=== PATIENT | male | born 1950 | race Caucasian/White ===

== ENCOUNTER 2016-11-22 16:11 | Observation (INO) | payer MEDICARE, BC ==
[2016-11-22] MEDS ORDERED: SODIUM CHLORIDE 0.9% 500 ML IV STA (17:00)
[2016-11-22] MEDS: EPINEPHrine 1 MG/ML 1 ML AMP IRRIGATION STA ×2 (17:08→17:21)
[2016-11-22] MEDS: EPINEPHrine 10 ML SYRINGE (0.1 MG/ML) MISCELLANE STA ×3 (17:21→17:25)
[2016-11-22 17:24] LABS: Basophils # (A) 0.1 k/uL (0-0.2); Basophils % (A) 0 %; CH 30.2; CHCM 34.7; Eosinophils # (A) 0.2 k/uL (0-0.7); Eosinophils % (A) 1 %; HCT 43.6 % (39.0-53.0); HGB 14.9 gm/dL (13.0-17.5); Luc # (Auto) 0.25; Luc % (Auto) 2; Lymphocytes # (A) 2.5 k/uL (1.0-4.8); Lymphocytes % (A) 16 %; MCH 29.8 pg (25.0-35.0); MCHC 34.1 g/dL (31.0-37.0); MCV 87.5 fL (80.0-100.0); Mean Platelet Volume 8.5; Monocytes # (A) 0.9 k/uL (0-1.0); Monocytes % (A) 6 %; Neutrophils # (A) 11.5 k/uL (1.3-7.7); Neutrophils % (A) 75 %; RBC 4.98 m/uL (4.30-5.90); RDW 14.1 % (11.5-15.5); WBC 15.4 k/uL (3.8-10.6); WBC (Perox) 15.52
[2016-11-22 17:29] LABS: INR 0.9 (<1.1); Prothrombin Time 9.7 sec (9.0-12.0)
[2016-11-22 17:40] LABS: ALT 35 U/L (21-72); AST 25 U/L (17-59); Alkaline Phosphatase 49 U/L (38-126); Anion Gap 12 mmol/L; Blood Urea Nitrogen 36 mg/dL (9-20); Calcium 9.5 mg/dL (8.4-10.2); Carbon Dioxide 21 mmol/L (22-30); Chloride 109 mmol/L (98-107); Glucose 150 mg/dL (74-99); Non-African American GFR(MDRD) 55 (>60 ml/min/1.73 sqM); Sodium 142 mmol/L (137-145); Total Bilirubin 0.4 mg/dL (0.2-1.3); Total Protein 6.5 g/dL (6.3-8.2)
[2016-11-22] MEDS ORDERED: HYDROmorphone 1 MG/ML 1 ML SYRINGE IVP STA (18:46)
--- NOTE | 2016-11-22 19:26 | ED ---
General Adult HPI - General Chief complaint: Recheck/Abnormal Lab/Rx Stated complaint: post op bleeding, under tongue Time Seen by Provider: 11/22/16 16:57 Source: patient, RN notes reviewed Mode of arrival: ambulatory Limitations: no limitations - History of Present Illness Initial comments: Chief complaint and history of present illness a 66-year-old male comes emergency room because he was bleeding from his tongue. The patient reports that he was in a movie felt his mouth for with some fluid he spent on the floor when outside spit again and noticed that was blood with clots. Arrived emergency room and continued to bleed heavily. While in emergency room the Spitting blood with large clots. The patient's recent history finds he has had tongue cancer removed 3 weeks ago at a [facility]. Surgical site was sutured but appeared to open today. Patient reports she was biting it with his tongue for the last 3 weeks. - Related Data Allergies Allergy/AdvReac Type Severity Reaction Status Date / Time No Known Allergies Allergy Verified 11/22/16 16:49 Review of Systems ROS Statement: Those systems with pertinent positive or pertinent negative responses have been documented in the HPI. Review of systems. No headache or visual acuity changes place patient's bleeding heavily from his tongue. No chest pain shortness breath GI/ problems. All systems otherwise reviewed. Past medical problems patient has hypertension takes aspirin 81 mg daily. Heavy smoker tongue cancer with surgery 3 weeks ago. Patient reports he was not told he has to have radiation or chemotherapy. ROS Other: All systems not noted in ROS Statement are negative. Past Medical History Past Medical History: Cancer, Diabetes Mellitus, Hyperlipidemia, Hypertension Additional Past Medical History / Comment(s): under tongue History of Any Multi-Drug Resistant Organisms: None Reported Past Surgical History: Tonsillectomy Additional Past Surgical History / Comment(s): cancer removal under tongue Past Psychological History: No Psychological Hx Reported Smoking Status: Current every day smoker Past Alcohol Use History: None Reported Past Drug Use History: None Reported General Exam - General Exam Comments Initial Comments: General: The patient is awake and alert, in moderate distress because of heavy bleeding from his tongue. Vital signs showed temperature 97.5 pulse 68 respiratory rate 18 pulse ox 90% room air blood pressure 154/78 Eye: Pupils are equal, , extra-ocular movements are intact; there is normal conjunctiva bilaterally. Ears, nose, mouth and throat: Patient had a large amount of blood coming from recent surgical site left lateral aspect of his tongue. Neck: The neck is supple, Cardiovascular: No chest pain Respiratory: Lungs clear to auscultation. No complaint of shortness of breath. Gastrointestinal: No complaint of abdominal pain. Back: No back pain Musculoskeletal: Full range of motion upper and lower extremities Neurological: Neuro intact Skin: Skin is warm and dry and no rashes or lesions are noted. Limitations: no limitations Course Vital Signs 11/22/16 11/22/16 11/22/16 16:44 17:11 17:17 Temperature 97.5 F L Pulse Rate 87 67 62 Respiratory 20 18 18 Rate Blood Pressure 140/62 179/77 163/74 O2 Sat by Pulse 97 99 Oximetry 11/22/16 11/22/16 11/22/16 17:22 17:37 17:52 Temperature Pulse Rate 63 64 75 Respiratory 18 18 Rate Blood Pressure 158/65 153/72 183/77 O2 Sat by Pulse 98 97 Oximetry 11/22/16 11/22/16 11/22/16 18:21 18:47 19:12 Temperature Pulse Rate 68 68 67 Respiratory 18 18 18 Rate Blood Pressure 158/66 154/78 161/77 O2 Sat by Pulse 98 98 97 Oximetry Medical Decision Making - Medical Decision Making Medical decision-making. The patient presented to the emergency room bleeding heavily from his tongue. He was rapidly brought back to room where we could assess the problem. While being assessed the patient became more diaphoretic and had a syncopal episode lasting approximately 45 seconds. During which time is able to find a bleeding site on the tongue. Packed it with epinephrine soaked gauze which helped to stop the bleeding. Patient's vital signs remained stable the entire time. ENT, Dr. Chris was called and responded to emergency room. While in emergency room Dr. Chris stop the bleeding with electrocautery. Sutured tongue with 3-0 chromic. The patient be admitted to his service for the evening. - Lab Data Result diagrams: 11/22/16 17:05 11/22/16 17:05 Lab Results 11/22/16 11/22/16 11/22/16 Range/Units 17:05 17:05 17:05 WBC 15.4 H (3.8-10.6) k/uL RBC 4.98 (4.30-5.90) m/uL Hgb 14.9 (13.0-17.5) gm/dL Hct 43.6 (39.0-53.0) % MCV 87.5 (80.0-100.0) fL MCH 29.8 (25.0-35.0) pg MCHC 34.1 (31.0-37.0) g/dL RDW 14.1 (11.5-15.5) % Plt Count 329 (150-450) k/uL Neutrophils % 75 % Lymphocytes % 16 % Monocytes % 6 % Eosinophils % 1 % Basophils % 0 % Neutrophils # 11.5 H (1.3-7.7) k/uL Lymphocytes # 2.5 (1.0-4.8) k/uL Monocytes # 0.9 (0-1.0) k/uL Eosinophils # 0.2 (0-0.7) k/uL Basophils # 0.1 (0-0.2) k/uL PT 9.7 (9.0-12.0) sec INR 0.9 (<1.1) Sodium 142 (137-145) mmol/L Potassium 5.0 (3.5-5.1) mmol/L Chloride 109 H (98-107) mmol/L Carbon Dioxide 21 L (22-30) mmol/L Anion Gap 12 mmol/L BUN 36 H (9-20) mg/dL Creatinine 1.30 H (0.66-1.25) mg/dL Est GFR (MDRD) Af Amer >60 (>60 ml/min/1.73 sqM) Est GFR (MDRD) Non-Af 55 (>60 ml/min/1.73 sqM) Glucose 150 H (74-99) mg/dL Calcium 9.5 (8.4-10.2) mg/dL Total Bilirubin 0.4 (0.2-1.3) mg/dL AST 25 (17-59) U/L ALT 35 (21-72) U/L Alkaline Phosphatase 49 (38-126) U/L Total Protein 6.5 (6.3-8.2) g/dL Albumin 3.7 (3.5-5.0) g/dL Blood Type Blood Type Recheck Antibody Screen Spec Expiration Date 11/22/16 Range/Units 17:05 WBC (3.8-10.6) k/uL RBC (4.30-5.90) m/uL Hgb (13.0-17.5) gm/dL Hct (39.0-53.0) % MCV (80.0-100.0) fL MCH (25.0-35.0) pg MCHC (31.0-37.0) g/dL RDW (11.5-15.5) % Plt Count (150-450) k/uL Neutrophils % % Lymphocytes % % Monocytes % % Eosinophils % % Basophils % % Neutrophils # (1.3-7.7) k/uL Lymphocytes # (1.0-4.8) k/uL Monocytes # (0-1.0) k/uL Eosinophils # (0-0.7) k/uL Basophils # (0-0.2) k/uL PT (9.0-12.0) sec INR (<1.1) Sodium (137-145) mmol/L Potassium (3.5-5.1) mmol/L Chloride (98-107) mmol/L Carbon Dioxide (22-30) mmol/L Anion Gap mmol/L BUN (9-20) mg/dL Creatinine (0.66-1.25) mg/dL Est GFR (MDRD) Af Amer (>60 ml/min/1.73 sqM) Est GFR (MDRD) Non-Af (>60 ml/min/1.73 sqM) Glucose (74-99) mg/dL Calcium (8.4-10.2) mg/dL Total Bilirubin (0.2-1.3) mg/dL AST (17-59) U/L ALT (21-72) U/L Alkaline Phosphatase (38-126) U/L Total Protein (6.3-8.2) g/dL Albumin (3.5-5.0) g/dL Blood Type AB Positive Blood Type Recheck CABO Indicated Antibody Screen NEGATIVE Spec Expiration Date 11/25/20162304 Disposition Clinical Impression: Hemorrhage of tongue Disposition: ADMITTED IP TO THIS HOSP Condition: Stable
[2016-11-22] MEDS ORDERED: HYDROmorphone PCA 5 MG/25 ML SYRINGE IV PRN (20:21)
[2016-11-22] MEDS ORDERED: ceFAZolin 2 GM in SODIUM CHLORIDE 0.9% 100 ML IVPB STA (20:22)
[2016-11-22] MEDS ORDERED: TEMAZEPAM 30 MG CAP PO PRN ×2 (20:27→22:30)
[2016-11-22 20:43] VITALS: RESP 16
[2016-11-22] MEDS ORDERED: LACTATED RINGERS 1,000 ML IV SCH (21:00)
[2016-11-22] MEDS ORDERED: METOPROLOL SUCCINATE (ER) 50 MG TAB.ER.24H PO SCH (21:30)
[2016-11-22] MEDS ORDERED: LISINOPRIL 10 MG TAB PO SCH (22:00)
[2016-11-22] MEDS ORDERED: ATORVASTATIN 20 MG TAB PO SCH (22:00)
[2016-11-22] MEDS ORDERED: INSULIN DETEMIR 100 UNIT/ML 10 ML VIAL SQ SCH (22:00)
[2016-11-22] MEDS ORDERED: DEXAMETHASONE 4 MG TAB PO STA (23:28)
[2016-11-22 23:33] LABS: Glucose,Whole Blood 222 mg/dL (75-99)
[2016-11-22] MEDS ORDERED: DEXAMETHASONE SOD PHOSPHATE 10 MG/ML 1 ML VIAL IV STA (23:35)
[2016-11-22] MEDS: ACETAMINOPHEN IV (For NPO) 1,000 MG in EMPTY BAG 1 BAG IVPB SCH (23:50)
[2016-11-22] MEDS: ONDANSETRON 4 MG/2 ML VIAL IVP SCH (23:54)
[2016-11-23] MEDS: ACETAMINOPHEN IV (For NPO) 1,000 MG in EMPTY BAG 1 BAG IVPB SCH ×2 (00:09→06:17)
[2016-11-23] MEDS: ONDANSETRON 4 MG/2 ML VIAL IVP SCH ×2 (00:10→06:18)
[2016-11-23 02:10] VITALS: BMI 30.4
--- NOTE | 2016-11-23 06:15 | ED ---
DATE OF SERVICE: 11/22/2016 Date of emergency room visit is 11/22/2016. REASON FOR ER VISIT: Delayed postoperative wound (left lateral tongue) dehiscence with uncontrolled hemorrhaging. Chief complaint is as above. HISTORY OF PRESENT ILLNESS: This patient is a 66-year-old male who presented to [facility] Emergency Room complaining of severe bleeding from the mouth. 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 The patient's wound defect was closed in a simple fashion with sutures. The patient did well until earlier on the evening of 11/22/2016 while watching a movie at [employer], the patient states that he was eating popcorn and noticed that he was bleeding orally. As he exited the theater, the patient stated that he found himself spitting up large amounts of blood and subsequently was taken to [facility] Emergency Room. He was evaluated by Dr. James who attempted to pack the area and apply pressure in an effort to stop the bleeding. When he was unable to do so, he contacted me at home as the ENT physician vp production. Dr. James explained ( ) to me and advised me that he would like for me to come in and treat the patient. At the time that I arrived at the emergency room, one could see that the patient was bleeding from the oropharynx on the left side and at that time there was significant gauze packing in the oropharynx. The patient has a history of smoking 1+ packs of cigarettes per day for most of his life and has been advised to stop for obvious health reasons. He denies any excess use of alcohol. He stated that he intends to quit smoking immediately and never use tobacco products again. Past medical history reveals the patient has no known allergies to medications. He is on numerous medications including metoprolol, enalapril, hydrochlorothiazide, glimepiride, Levemir, 1 baby aspirin daily, Januvia, TriCor, and omeprazole. Review of systems reveals that the cardiovascular system is positive for hypertension. Respiratory is negative. Gastrointestinal is positive for GERD. Metabolic/endocrine is positive for hypercholesterolemia. Musculoskeletal is positive for osteoarthritis. Metabolic/endocrine is also positive for diabetes mellitus. The remainder of review of systems is unremarkable. PHYSICAL EXAMINATION: This patient is a 66-year-old male who is alert and cooperative and is in no acute distress at this time. However, he is actively bleeding from the oropharynx. HEENT: Patient is normocephalic. Tympanic membranes are normal. Pupils equal, round, and reactive to light and accommodation. Intranasal examination reveals moderate to severe septal deviation. Extensive examination of the oropharynx reveals that the patient has complete wound dehiscence of the left lateral border of the tongue beginning at the tip of the tongue and extending back towards the base of tongue with a wide and deep excisional biopsy having been carried out. There appears to be a single squirting artery present. No other actual bleeding sites were noted and the area has actually started to granulate or heal in. Remainder of the head and neck exam is within normal limits. CHEST/CARDIOVASCULAR: Lung armenta are clear to percussion and auscultation. Patient is in regular sinus rhythm. S1 and S2 are present without any murmurs. Remainder of the physical examination is unremarkable. IMPRESSION: Delayed postoperative wound dehiscence of the left lateral border of the tongue with hemorrhaging. PLAN: We will control the hemorrhaging and resuture the patient's wound defect. It is to be noted that approximately 2 hours was spent in the emergency room examining and treating this patient. The operative procedure carried out will be detailed in a separate operative note. After the patient's procedure, the patient will be admitted to the hospital for 23-hours observation, pain control, diet, etc. He will be admitted to the 23-hour observation unit for 23 hour hold. I have explained the operation/procedure to the patient, including the risks, benefits, side effects, alternative therapies (including not receiving the proposed treatment or service), the likelihood of the patient achieving his/her goals, and potential recuperation problems for the procedure/sedation/analgesia, as well as any blood products, if indicated. I also explained to the patient the risks, benefits, and side effects of the alternatives, as well as the risks related to not receiving the proposed procedure, care treatment or services. Procedure namely closure of wound dehiscence under local anesthesia in the emergency room.
--- NOTE | 2016-11-23 06:31 | OP ---
DATE OF SERVICE: SURGEON: CUBA DE GUZMAN MD CORN HUSKER: Dr. Sameer James PREOPERATIVE DIAGNOSIS: Delayed postoperative wound dehiscence of the left lateral tongue with uncontrolled hemorrhaging. POSTOPERATIVE DIAGNOSIS: Delayed postoperative wound dehiscence of the left lateral tongue with uncontrolled hemorrhaging. OPERATION: ANESTHESIA: Local with approximately 10 mL of 1% Xylocaine with epinephrine 1:100,000. ESTIMATED BLOOD LOSS: Approximately 50 to 75 mL. SPECIMENS REMOVED: COMPLICATIONS: None. OPERATIVE FINDINGS: OPERATIVE PROCEDURE: The patient was placed on the table in the supine position. All of the blood clots were evacuated from the patient's oropharynx. Initially the left lateral aspect of the tongue along with the tip was infiltrated with approximately 10 mL of 1% Xylocaine with epinephrine, beginning at the tip of the tongue and working towards the base of the tongue with several injections being made into the wound defect itself to achieve local anesthesia. Next, a single 3-0 silk suture was placed through the lateral tip of the tongue and this was used for retraction. Next, using the suction cautery the active bleeder was identified and subsequently was cauterized in the usual and customary fashion and this ceased all active bleeding. Once again, the oropharynx was cleared of all blood clots and saliva. The patient was completely awake during this procedure and was not in any significant discomfort. With appropriate retraction the wound defect was closed using a 3-0 chromic suture in an interrupted fashion to approximate the mucosal edges of the wound defect to each other beginning at the left anterior lateral tip of the tongue and working back posteriorly placing the 3-0 chromic sutures in a buried fashion. The closure was carried back as far posteriorly as possible. However, as one approached near the base of the tongue, it became increasingly difficult to completely close the wound defect so a very small portion was left open and it was felt that this would allow for any drainage and also it would eventually granulate in under secondary intention. The wound defect was closed tightly. Further inspection revealed no evidence of any active bleeding. This patient will be given 10 mg of Decadron to reduce any postoperative edema of the tongue itself. The Stay suture which had been placed at the tip of the tongue for retraction was removed without difficulty. All needles used in this procedure were accounted for. The procedure took approximately 45 minutes to complete. At this point, the procedure was terminated. There were no intraoperative complications. The patient tolerated the procedure well and will be admitted to the hospital to the 23-hour observation unit where he will be placed on IV fluids, IV antibiotics, AIRPLANE PILOT pump, soft diet and all of his home medications will be reordered. It is planned that the patient should be able to go home on , 11/23/2016 and has been advised to follow up with his family physician and afterwards to call the operating surgeon and notify him of the complications that he had so that he may determine whether or not he would like to see Mr. Martinez earlier than his scheduled appointment . Estimated blood loss was less than 75 mL. A hemoglobin was obtained and it appeared to be within the normal range that is to say between 12 and 14 and therefore it was not felt that any type of transfusions will be necessary. The patient tolerated the procedure very well.
[2016-11-23 07:00] LABS: Glucose,Whole Blood 110 mg/dL (75-99)
[2016-11-23] MEDS ORDERED: PANTOPRAZOLE 40 MG TABLET PO SCH (07:30)
[2016-11-23] MEDS ORDERED: GLIMEPIRIDE 2 MG TAB PO SCH (07:30)
[2016-11-23] MEDS ORDERED: ceFAZolin 2 GM in SODIUM CHLORIDE 0.9% 100 ML IVPB SCH (08:00)
[2016-11-23 08:50] VITALS: BP 186/81; PULSE 70; TEMP 98.6
[2016-11-23] MEDS ORDERED: HYDROCHLOROTHIAZIDE 25 MG TAB PO SCH (09:00)
== END 2016-11-23 09:10 | disposition home or self-care (01) ==
LOC: EC 16:11 → 3OBS 20:53
PROVIDERS: ADMIT Otolaryngology; ATTEND Otolaryngology
DX: K91.840 Postprocedural hemorrhage of a digestive system organ or structure following a digestive system procedure (principal); T81.31XA Disruption of external operation (surgical) wound, not elsewhere classified, initial encounter; Y83.8 Other surgical procedures as the cause of abnormal reaction of the patient, or of later complication, without mention of misadventure at the time of the procedure; Z98.890 Other specified postprocedural states; Z85.810 Personal history of malignant neoplasm of tongue; E11.9 Type 2 diabetes mellitus without complications; E78.00 Pure hypercholesterolemia, unspecified; E78.5 Hyperlipidemia, unspecified; F17.200 Nicotine dependence, unspecified, uncomplicated; I10 Essential (primary) hypertension; K21.9 Gastro-esophageal reflux disease without esophagitis; M19.90 Unspecified osteoarthritis, unspecified site; R61 Generalized hyperhidrosis; R55 Syncope and collapse; Z79.899 Other long term (current) drug therapy; Z79.84 Long term (current) use of oral hypoglycemic drugs; Z79.82 Long term (current) use of aspirin
CPT/HCPCS: 37799; 96361 ×4; 96374 ×2; 99285 ×2; 96375 ×2; 96376; 99283; 36415 ×2; 94760; 92950; 86900; 86901; 80053; 85025; 85610; 86850; G0378 ×2; J0171 ×2; J1100; J2405; J1170 ×2

== ENCOUNTER 2016-11-23 14:28 | Emergency (ER) | payer MEDICARE, BC ==
[2016-11-23 14:56] VITALS: BP 142/66; PULSE 74; RESP 18; TEMP 97
--- NOTE | 2016-11-23 16:15 | ED ---
General Adult HPI - General Chief complaint: Recheck/Abnormal Lab/Rx Stated complaint: high blood sugar-sent by Time Seen by Provider: 11/23/16 16:05 Source: patient, RN notes reviewed Mode of arrival: ambulatory Limitations: no limitations - History of Present Illness Initial comments: 66-year-old male presents emergency Department for hyperglycemia. Patient states she was admitted to the hospital last night secondary to a bleeding tongue wound. Patient states that they did not give him his full dose of Levemir at nighttime secondary to him not taking much orally. Patient states that he did have breakfast this morning in which he had pancakes, syrup another height ALLERGIES. Patient states that he does not take his Januvia or Melodie until approximately an hour half prior to come emergency department. Patient states he had an appointment with his primary care physician who checked his blood sugar and told it was elevated. Patient states that he did not know what it was. Patient states that he checked at home and showed 366. Patient took his medication and current blood glucose is 266. Patient offers no complaints at this time. - Related Data Home Medications Medication Instructions Recorded Confirmed Aspirin EC [Ecotrin Low Dose] 81 mg PO DAILY 11/22/16 11/22/16 Cholecalciferol [Vitamin D3] 1,000 unit PO DAILY 11/22/16 11/22/16 Enalapril Maleate [Vasotec] 10 mg PO BID 11/22/16 11/22/16 Fenofibrate Nanocrystallized 145 mg PO HS 11/22/16 11/22/16 [Fenofibrate] Glimepiride [Amaryl] 2 mg PO DAILY 11/22/16 11/22/16 Gluc/Charles-MSM#1/C/Kee/Zeeshan/Bor 1 tab PO DAILY 11/22/16 11/22/16 [Glucosamine-Chondroitin Tablet] Hydrochlorothiazide [Hydrodiuril] 25 mg PO DAILY 11/22/16 11/22/16 Insulin Detemir [Levemir Flextouch] 100 units SQ HS 11/22/16 11/22/16 Metoprolol Succinate [Toprol XL] 50 mg PO BID 11/22/16 11/22/16 [place]-3 Fatty Acids/Fish Oil [Fish 1 cap PO DAILY 11/22/16 11/22/16 Oil 1,000 mg Softgel] Omeprazole 40 mg PO DAILY 11/22/16 11/22/16 Simvastatin [Zocor] 20 mg PO HS 11/22/16 11/22/16 Vitamin B Complex 1 cap PO DAILY 11/22/16 11/22/16 Previous Rx's Medication Instructions Recorded Cefdinir [Omnicef] 600 mg PO Q24HR #20 capsule NS 11/23/16 HYDROcodone/APAP 7.5-325MG [[place] 1 tab PO Q4H PRN #40 tab 11/23/16 7.5-325] Allergies Allergy/AdvReac Type Severity Reaction Status Date / Time No Known Allergies Allergy Verified 11/23/16 14:57 Review of Systems ROS Statement: Those systems with pertinent positive or pertinent negative responses have been documented in the HPI. ROS Other: All systems not noted in ROS Statement are negative. Past Medical History Past Medical History: Cancer, Diabetes Mellitus, Hyperlipidemia, Hypertension Additional Past Medical History / Comment(s): under tongue History of Any Multi-Drug Resistant Organisms: None Reported Past Surgical History: Tonsillectomy Additional Past Surgical History / Comment(s): cancer removal under tongue Past Anesthesia/Blood Transfusion Reactions: No Reported Reaction Past Psychological History: No Psychological Hx Reported Smoking Status: Current every day smoker Past Alcohol Use History: None Reported Past Drug Use History: None Reported General Exam Limitations: no limitations General appearance: alert, in no apparent distress Head exam: Present: atraumatic, normocephalic, normal inspection Eye exam: Present: normal appearance, PERRL, EOMI. Absent: scleral icterus, conjunctival injection, periorbital swelling ENT exam: Present: mucous membranes moist. Absent: normal exam, normal oropharynx (Sutures out on the left-sided tongue) Neck exam: Present: normal inspection, full ROM. Absent: tenderness, meningismus, lymphadenopathy Respiratory exam: Present: normal lung sounds bilaterally. Absent: respiratory distress, wheezes, rales, rhonchi, stridor Cardiovascular Exam: Present: regular rate, normal rhythm, normal heart sounds. Absent: systolic murmur, diastolic murmur, rubs, gallop, clicks Course Vital Signs 11/23/16 14:52 Temperature 97.0 F L Pulse Rate 74 Respiratory 18 Rate Blood Pressure 142/66 O2 Sat by Pulse 97 Oximetry Medical Decision Making - Medical Decision Making 66-year-old male presented for hyperglycemia. Patient was sugars elevated secondary to not having his normal medications. Patient took them approximately 90 minutes prior to arrival. Patient's blood glucose has dropped 100 already. Patient not be given any additional medication as he has not eaten lunch. Patient medication or currently control his blood glucose and he' ll recheck at home. Patient is due for Levemir at nighttime Disposition Clinical Impression: Hyperglycemia Disposition: HOME SELF-CARE Condition: Stable Instructions: Diabetic Hyperglycemia (ED) Additional Instructions: Please return to the Emergency Department if symptoms worsen or any other concerns. Referrals: Adriano Anderson MD [Primary Care Provider] - 1-2 days Time of Disposition: 16:15
[2016-11-23 16:47] LABS: Glucose,Whole Blood 266 mg/dL (75-99)
== END 2016-11-23 16:30 | disposition home or self-care (01) ==
LOC: EC 14:28
DX: E11.65 Type 2 diabetes mellitus with hyperglycemia (principal); E78.5 Hyperlipidemia, unspecified; I10 Essential (primary) hypertension; Z79.84 Long term (current) use of oral hypoglycemic drugs; Z79.82 Long term (current) use of aspirin; Z79.899 Other long term (current) drug therapy; Z79.4 Long term (current) use of insulin
CPT/HCPCS: 36415; 99283; 99285

== ENCOUNTER 2016-11-26 20:08 | Observation (INO) | payer MEDICARE, BC ==
[2016-11-26] MEDS: EPINEPHrine 10 ML SYRINGE (0.1 MG/ML) MISCELLANE STA ×7 (20:20→20:58)
[2016-11-26] MEDS ORDERED: SODIUM CHLORIDE 0.9% 1,000 ML IV STA (20:26)
[2016-11-26 20:53] LABS: CH 29.9; CHCM 34.4; HCT 30.9 % (39.0-53.0); HDW 2.71; MCH 29.1 pg (25.0-35.0); MCHC 33.4 g/dL (31.0-37.0); MCV 87.3 fL (80.0-100.0); Mean Platelet Volume 8.9; RBC 3.54 m/uL (4.30-5.90); RDW 14.4 % (11.5-15.5); WBC 10.5 k/uL (3.8-10.6)
[2016-11-26 21:05] LABS: ALT 35 U/L (21-72); AST 29 U/L (17-59); Alkaline Phosphatase 32 U/L (38-126); Anion Gap 8 mmol/L; Blood Urea Nitrogen 25 mg/dL (9-20); Calcium 8.4 mg/dL (8.4-10.2); Carbon Dioxide 21 mmol/L (22-30); Chloride 114 mmol/L (98-107); Glucose 102 mg/dL (74-99); HGB 10.3 gm/dL (13.0-17.5); Non-African American GFR(MDRD) >60 (>60 ml/min/1.73 sqM); Sodium 143 mmol/L (137-145); Total Bilirubin 0.4 mg/dL (0.2-1.3); Total Protein 5.9 g/dL (6.3-8.2)
[2016-11-26] MEDS ORDERED: IV FLUID CONTINUATION 1,000 ML IV ONE (21:06)
[2016-11-26] MEDS ORDERED: LACTATED RINGERS 1,000 ML IV ONE (21:06)
--- NOTE | 2016-11-26 21:16 | ED ---
General Adult HPI - General Chief complaint: ENT Stated complaint: Stiches under tongue open Source: patient, family, RN notes reviewed, old records reviewed Mode of arrival: ambulatory Limitations: no limitations - History of Present Illness Initial comments: Chief complaint history of present illness a 66-year-old male who returns after having had his tongue resutured several days ago. The patient's history includes having had cancer the left side of his tongue. The cancers removed and the tendon was sutured several weeks ago. Several days ago the patient started bleeding from the left side of his tongue. He can emergency room. ENT Dr. Chris can emergency room and sutured his tongue. Patient advised to eat only soft foods. The patient was eating meat today and started bleeding again. Patient lost a large amount of blood. IV was started a received a liter fluid immediately. Blood sent to lab for type and cross [address] Chris called stat to the emergency room. Anesthesia notified operating room team called in. - Related Data Home Medications Medication Instructions Recorded Confirmed Aspirin EC [Ecotrin Low Dose] 81 mg PO DAILY 11/22/16 11/26/16 Cholecalciferol [Vitamin D3] 1,000 unit PO DAILY 11/22/16 11/26/16 Enalapril Maleate [Vasotec] 10 mg PO BID 11/22/16 11/26/16 Fenofibrate Nanocrystallized 145 mg PO HS 11/22/16 11/26/16 [Fenofibrate] Glimepiride [Amaryl] 2 mg PO DAILY 11/22/16 11/26/16 Gluc/Charles-MSM#1/C/Kee/Zeeshan/Bor 1 tab PO DAILY 11/22/16 11/26/16 [Glucosamine-Chondroitin Tablet] Hydrochlorothiazide [Hydrodiuril] 25 mg PO DAILY 11/22/16 11/26/16 Insulin Detemir [Levemir Flextouch] 100 units SQ HS 11/22/16 11/26/16 Metoprolol Succinate [Toprol XL] 50 mg PO BID 11/22/16 11/26/16 [place]-3 Fatty Acids/Fish Oil [Fish 1 cap PO DAILY 11/22/16 11/26/16 Oil 1,000 mg Softgel] Omeprazole 40 mg PO DAILY 11/22/16 11/26/16 Simvastatin [Zocor] 20 mg PO HS 11/22/16 11/26/16 Vitamin B Complex 1 cap PO DAILY 11/22/16 11/26/16 Previous Rx's Medication Instructions Recorded Cefdinir [Omnicef] 600 mg PO Q24HR #20 capsule NS 11/23/16 HYDROcodone/APAP 7.5-325MG [[place] 1 tab PO Q4H PRN #40 tab 11/23/16 7.5-325] Allergies Allergy/AdvReac Type Severity Reaction Status Date / Time No Known Allergies Allergy Verified 11/26/16 20:24 Review of Systems ROS Statement: Those systems with pertinent positive or pertinent negative responses have been documented in the HPI. Review of systems. As noted above the patient had tongue cancer. See chief complaint. Surgeries as noted in the chief complaint. No known ALLERGIES. He does smoke strongly encouraged to stop. ROS Other: All systems not noted in ROS Statement are negative. Past Medical History Past Medical History: Cancer, Diabetes Mellitus, Hyperlipidemia, Hypertension Additional Past Medical History / Comment(s): under tongue History of Any Multi-Drug Resistant Organisms: None Reported Past Surgical History: Tonsillectomy Additional Past Surgical History / Comment(s): cancer removal under tongue Past Anesthesia/Blood Transfusion Reactions: No Reported Reaction Past Psychological History: No Psychological Hx Reported Smoking Status: Current every day smoker Past Alcohol Use History: None Reported Past Drug Use History: None Reported General Exam - General Exam Comments Initial Comments: General: The patient is awake and alert, large amount of bleeding coming from the left side of his tongue where he had cancer removed and the wound sutured twice in the past several weeks. Sutures broke after patient ate hard food. He had been instructed to eat only soft foods until he followed up with his oral surgeon. Vital signs show temperature 97.0 pulse 89 respiratory rate 20 pulse ox 97% room air blood pressure 140/63 Eye: Pupils are equal, round and reactive to light, extra-ocular movements are intact ; there is normal conjunctiva bilaterally. No signs of icterus. Ears, nose, mouth and throat: Patient had breakdown of the sutures placed several days ago. Brisk bleeding from the left side of his tongue. Neck: The neck is supple, there is no tenderness No chest pain or shortness of breath. No abdominal pain. Gastrointestinal: Soft, non-distended, non-tender abdomen without masses or organomegaly noted. There is no rebound or guarding present. No CVA tenderness. Bowel sounds are unremarkable. Back: There is no tenderness to palpation in the midline. There is no obvious deformity. No rashes noted. Neurological: Neuro intact Skin: Skin is warm and dry and no rashes or lesions are noted. Limitations: no limitations Course Vital Signs 11/26/16 11/26/16 11/26/16 20:21 20:52 21:00 Temperature 97 F L 97 F L Pulse Rate 83 72 84 Respiratory 20 20 20 Rate Blood Pressure 161/101 138/63 140/63 O2 Sat by Pulse 97 97 97 Oximetry Medical Decision Making - Medical Decision Making Medical decision-making. No one emergency room the patient had the blood suctioned from his mouth. The area in question was packed with sterile cotton balls that had been sewn together and made wet with epinephrine 1-10,000. Pressure was applied bleeding controlled. The patient will be taken to the operating room for further management of the bleeding area. - Lab Data Result diagrams: 11/26/16 20:47 11/26/16 20:47 Lab Results 11/26/16 11/26/16 Range/Units 20:47 20:47 WBC 10.5 (3.8-10.6) k/uL RBC 3.54 L (4.30-5.90) m/uL Hgb 10.3 L D (13.0-17.5) gm/dL Hct 30.9 L (39.0-53.0) % MCV 87.3 (80.0-100.0) fL MCH 29.1 (25.0-35.0) pg MCHC 33.4 (31.0-37.0) g/dL RDW 14.4 (11.5-15.5) % Plt Count 300 (150-450) k/uL Sodium 143 (137-145) mmol/L Potassium 5.0 (3.5-5.1) mmol/L Chloride 114 H (98-107) mmol/L Carbon Dioxide 21 L (22-30) mmol/L Anion Gap 8 mmol/L BUN 25 H (9-20) mg/dL Creatinine 1.10 (0.66-1.25) mg/dL Est GFR (MDRD) Af Amer >60 (>60 ml/min/1.73 sqM) Est GFR (MDRD) Non-Af >60 (>60 ml/min/1.73 sqM) Glucose 102 H (74-99) mg/dL Calcium 8.4 (8.4-10.2) mg/dL Total Bilirubin 0.4 (0.2-1.3) mg/dL AST 29 (17-59) U/L ALT 35 (21-72) U/L Alkaline Phosphatase 32 L (38-126) U/L Total Protein 5.9 L (6.3-8.2) g/dL Albumin 3.2 L (3.5-5.0) g/dL Disposition Clinical Impression: Tongue laceration, Tongue malignant neoplasm Disposition: ADMITTED IP TO THIS HOSP Condition: Serious
[2016-11-26] MEDS ORDERED: LIDOCAINE 1% INJ 10MG/ML (20 ML MDV) ONE (21:21)
[2016-11-26] MEDS ORDERED: PROPOFOL 10 MG/ML 20 ML VIAL IV ONE (21:21)
[2016-11-26] MEDS ORDERED: METOCLOPRAMIDE 5 MG/ML 2 ML VIAL ONE (21:21)
[2016-11-26] MEDS ORDERED: SUCCINYLCHOLINE CHLORIDE 100 MG/5 ML SYR IV ONE (21:21)
[2016-11-26] MEDS ORDERED: DEXAMETHASONE SOD PHOS (MDV) 100 MG/10 ML VIAL ONE (21:21)
[2016-11-26] MEDS ORDERED: fentaNYL (PF) 50 MCG/ML 2 ML AMP ONE (21:21)
[2016-11-26] MEDS ORDERED: MIDAZOLAM 2 MG/2 ML VIAL ONE (21:21)
[2016-11-26] MEDS ORDERED: hydrALAZINE HCL 20 MG/ML 1 ML VIAL ONE (21:21)
[2016-11-26] MEDS ORDERED: SODIUM CHLORIDE 0.9% 100 ML with ceFAZolin 2,000 MG IV ONE ×2 (21:39)
[2016-11-26] MEDS ORDERED: LABETALOL SYRINGE 5 MG/ML IVP ONE (22:41)
[2016-11-26 22:50] LABS: Glucose,Whole Blood 142 mg/dL (75-99)
[2016-11-26 22:53] VITALS: RESP 16
[2016-11-26] MEDS ORDERED: TEMAZEPAM 30 MG CAP PO PRN (23:00)
[2016-11-26] MEDS ORDERED: LACTATED RINGERS 1,000 ML IV SCH (23:00)
[2016-11-26] MEDS ORDERED: ONDANSETRON 4 MG/2 ML VIAL IVP PRN (23:00)
[2016-11-26] MEDS ORDERED: HYDROmorphone 1 MG/ML 1 ML SYRINGE IVP PRN (23:19)
[2016-11-26] MEDS ORDERED: INSULIN DETEMIR 100 UNIT/ML 10 ML VIAL SQ SCH (23:45)
[2016-11-26] MEDS ORDERED: ATORVASTATIN 20 MG TAB PO SCH (23:45)
[2016-11-26 23:54] VITALS: BMI 31.3
[2016-11-27] MEDS: ACETAMINOPHEN IV (For NPO) 1,000 MG in EMPTY BAG 1 BAG IVPB SCH ×3 (00:13→06:16)
[2016-11-27] MEDS: FENOFIBRATE 160 MG TAB PO SCH ×2 (00:13→07:58)
[2016-11-27 00:16] LABS: Glucose,Whole Blood 207 mg/dL (75-99)
[2016-11-27] MEDS: LISINOPRIL 10 MG TAB PO SCH ×2 (00:25→07:57)
[2016-11-27] MEDS: METOPROLOL SUCCINATE (ER) 50 MG TAB.ER.24H PO SCH ×2 (00:25→07:57)
[2016-11-27 07:14] LABS: Glucose,Whole Blood 250 mg/dL (75-99)
--- NOTE | 2016-11-27 07:16 | OP ---
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 OPERATION: Control of intraoral hemorrhaging of the tongue and closure of dehiscent wound defect of the left lateral tongue. ANESTHESIA: General anesthesia. ESTIMATED BLOOD LOSS: SPECIMENS REMOVED: COMPLICATIONS: Approximately 25 mL OPERATIVE FINDINGS: OPERATIVE PROCEDURE: The patient was placed on the operating table in the supine position after uneventful induction and endotracheal intubation, satisfactory general anesthesia was obtained. Next, the patient was draped in the usual and customary fashion. Next the patient's the tip of the tongue was grasped with a towel clip and was pulled anteriorly. A medium dental bite block was inserted into the left buccal space and by pulling the left tongue anteriorly, this exposed the site of the previous excision of squamous cell carcinoma on the left lateral border of the tongue. This patient had recently had this area closed in the emergency room by me under local anesthesia. However, the patient was sent home and was advised to stay on a liquid to soft diet which he chose to ignore. He presented to the emergency room on the evening of 11/26/2016 complaining of severe bleeding and was noted by the ER physician to have ruptured all of the sutures that had been previously placed, that is to say the wound had dehisced due to the fact that he was eating more coarse foodstuff than he should have been eating. Dr. James in the emergency room was able to control the bleeding. Inspection of the area in the operating room while the patient under general anesthesia revealed that the patient did have an actively bleeding perforating artery of the tongue. This artery was grasped with the tip of a mosquito hemostat and subsequently was tied with a 3-0 silk suture, and then double ligated using a vascular clip. Inspection did not reveal any further bleeding and therefore the wound defect was closed in 2 layers with several 4-0 Vicryl sutures being buried to close the deeper layers of the muscles of the tonsils. Next, the edges of the wound defect were approximated beginning anteriorly using 3-0 rapid absorbing Vicryl suture, in a simple interrupted fashion, taking deep bites into the tongue muscle itself. The sutures were carried from anterior to the most posterior aspect of the left lateral portion of the tongue. Inspection did not reveal any active bleeding and the closure was considered satisfactory. In addition to this, several additional bolstering interrupted 3-0 rapid absorbing Vicryl sutures were inserted in an effort to oversew the area. At this point, the procedure was terminated and there were no intraoperative complications. The patient will be given 10 mg of Decadron intraoperatively to reduce any swelling of the tongue and he will be admitted to observation unit for 23 hours and discharged in the morning and he has been advised to keep this appointment with his original surgeon. There were no intraoperative complications. The patient tolerated the procedure well and was returned to recovery room in satisfactory condition.
--- NOTE | 2016-11-27 07:22 | HP ---
DATE OF ADMISSION: 11/26/2016 Reason for the Emergency Room visit: Dehiscence of the surgical site of the left lateral tongue. Chief complaint is intraoral hemorrhaging from a dehiscent wound of the left lateral tongue. HISTORY OF PRESENT ILLNESS: This is the second visit to the emergency room in the last several days for Mr. Simón Martinez. He was previously seen in the emergency room on 11/22/2016 for a delayed postoperative hemorrhaging of the tongue. The patient had undergone a left partial lateral glossectomy at a [facility]. The patient states that it was approximately 2-1/2 weeks or so ago. Approximately one day prior to coming to the emergency room, the patient was at one of the local theaters and while eating popcorn, he noticed that he was swallowing blood. Upon exiting the theater, the patient states that he noticed he was spitting out large amounts of blood and immediately went to the [facility] emergency room. He was seen by Dr. James who was able to decrease the severe hemorrhaging from the tongue that was going on and I was called because I was the ENT physician instructional media services technician. I arrived at the emergency room to find the patient still bleeding and therefore obtained the necessary materials including electrocautery, local anesthetic and an instrument set and after localizing the tongue with approximately 8 mL of 1% lidocaine with epinephrine 1:100,000, inspection revealed that the patient had a small bleeding site which was cauterized with suction cautery. The wound defect was complete, I would say all of the sutures had ruptured from anterior to posterior. I elected to close the wound defect in a simple interrupted fashion using 3-0 chromic suture. The procedure was uneventful and the patient was cautioned to place himself on a liquid to soft diet for at least the next week. He was further instructed to call his original operating surgeon in the a.m. and get an early appointment so he may inspect the area to see if anything further needs to be done. Apparently, the patient states that he called the doctor's office and he advised him to keep his original appointment. I am not sure how much the patient actually emphasized the amount of bleeding that he had occurred. At any rate, the patient states that he did observe my recommendation with regards to the dietary restriction to soft and liquid food for approximately 1-1/2 days and subsequently he once again he had started eating a normal diet. On the night of his coming to the emergency room, the patient states that he was eating ground beef and spaghetti and also that had eaten a sandwich, possibly roast beef? I examined the patient and found that once again that he had ruptured all of the sutures and advised him that it would be best that we take him back to surgery to most efficiently close this wound defect. Past medical history reveals the patient has no known allergies to medications. Current medications include: 1. Lipitor. 2. Lofibra. 3. Amaryl. 4. Levemir. 5. Vasotec. 6. HydroDIURIL. 7. Omeprazole. 8. Metoprolol. 9. Zocor. Review of systems is positive and the patient is known to have hypertension. Respiratory is negative. Gastrointestinal is positive for GERD. Metabolic/endocrine is positive for type 1 diabetes mellitus as well as hypercholesterolemia. The remainder of review of systems is essentially unremarkable. PHYSICAL EXAMINATION: This patient is a 66-year-old male who is alert and cooperative. HEENT EXAMINATION: Patient is normocephalic. Tympanic membranes are normal. Middle ear spaces are free of any fluid or infection. Pupils equal, round, and reactive to light and accommodation. Extraocular movements are within normal limits. Intranasal examination reveals moderate to severe septal deviation with compensatory hypertrophy of inferior turbinates. Examination of oropharynx reveals complete wound dehiscence of the left lateral aspect of the tongue from anterior to posterior to the base of the tongue. In addition, there is active bleeding posteriorly. Cranial nerves 2 through 12 and remainder of the head and neck exam is unremarkable. Chest/cardiovascular, both lung armenta are clear to percussion and auscultation. The patient is in regular sinus rhythm. S1 and S2 are present without evidence of any murmurs, S3s or S4s. ABDOMEN: There is no evidence of any masses, megaly or tenderness. The abdomen is soft. Skin is unremarkable. Musculoskeletal and neurological are within normal limits. RECTAL EXAM: The rectal exam is deferred at this time because the patient has this done on a regular basis at his family physician's office. The remainder of physical exam is essentially unremarkable. IMPRESSION: Delayed wound dehiscence of the left lateral border of the tongue with intraoral hemorrhaging of the left lateral border of the tongue. PLAN: The patient is scheduled to be taken immediately to surgery [facility] for definitive closure of his wound dehiscence and he will be admitted for overnight observation.
[2016-11-27] MEDS ORDERED: INSULIN LISPRO (humaLOG) 300 UNIT/3 ML VIAL SQ SCH (07:30)
[2016-11-27] MEDS ORDERED: GLIMEPIRIDE 2 MG TAB PO SCH (07:30)
[2016-11-27 08:03] VITALS: BP 129/62; PULSE 61; TEMP 98
[2016-11-27 13:22] LABS: Hemoglobin A1C 7.7 % (4.2-6.1)
== END 2016-11-27 09:15 | disposition home or self-care (01) ==
LOC: EC 20:08 → 3OBS 21:15 → EC 21:16 → 3OBS 21:21
PROVIDERS: ADMIT Otolaryngology; ATTEND Otolaryngology
DX: T81.31XA Disruption of external operation (surgical) wound, not elsewhere classified, initial encounter (principal); C02.9 Malignant neoplasm of tongue, unspecified; E10.9 Type 1 diabetes mellitus without complications; E78.00 Pure hypercholesterolemia, unspecified; E78.5 Hyperlipidemia, unspecified; F17.200 Nicotine dependence, unspecified, uncomplicated; I10 Essential (primary) hypertension; K21.9 Gastro-esophageal reflux disease without esophagitis; Z79.4 Long term (current) use of insulin; Z79.84 Long term (current) use of oral hypoglycemic drugs; Z79.899 Other long term (current) drug therapy; Z79.82 Long term (current) use of aspirin; Z91.19 Patient's noncompliance with other medical treatment and regimen
CPT/HCPCS: 37799; 99284 ×2; 96361 ×2; 96374; 36415; 86900; 86901; 80053; 83036; 85027; 86850; 86920; G0378 ×2; J2250; J0360; J2765; J2001; J0171; J3010; J0690; J1100; J0330; J2704; 99285

== ENCOUNTER 2018-01-24 18:43 | Emergency (ER) | payer MEDICARE, BC ==
[2018-01-24 18:50] LABS: Glucose,Whole Blood 98 mg/dL (75-99)
[2018-01-24 19:01] VITALS: TEMP 97.2
[2018-01-24 19:09] VITALS: BP 181/78; PULSE 64; RESP 18
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
== END 2018-01-24 19:51 | disposition home or self-care (01) ==
LOC: EC 18:43
DX: E10.649 Type 1 diabetes mellitus with hypoglycemia without coma (principal); I10 Essential (primary) hypertension; E78.5 Hyperlipidemia, unspecified; Z85.810 Personal history of malignant neoplasm of tongue; Z79.82 Long term (current) use of aspirin; Z79.4 Long term (current) use of insulin; Z79.899 Other long term (current) drug therapy
CPT/HCPCS: 36415; 93005; 99285

== ENCOUNTER → 2019-11-08 | Outpatient (CLI) | payer MEDICARE ==
--- NOTE | 2019-11-09 11:58 | MR ---
EXAMINATION TYPE: MR shoulder LT wo con DATE OF EXAM: 11/08/2019 COMPARISON: None HISTORY: Left shoulder pain TECHNIQUE: Multiplanar, multisequence imaging of the left shoulder is performed without contrast. FINDINGS: Rotator Cuff: Full-thickness tear the supraspinatus tendon is present seen on coronal image 10, sagit vladimir image 7. Suspect there is a partial full-thickness tear of the infraspinatus tendon also present Acromioclavicular Joint: Hypertrophic changes of the acromioclavicular joint are present. Glenohumeral Joint: There is arthropathy of the glenohumeral joint, remodeling of the humeral head. Labrum: There is abnormal signal present within the labrum suspected on coronal image #21 inferiorly, posteriorly on axial image #6 and also the anterior margin appears somewhat irregular inferiorly Biceps Tendon: Biceps tendon is thought to be subluxed anteriorly from the bicipital groove but is no t well identified on axial images, the tendon is thought to be attenuated centrally Bone marrow signal: Pseudocysts are present within the humeral head. Other: There is a joint effusion. Fluid signal is present in the subacromial subdeltoid bursa. There is an acromial spur. Fluid present along the subscapularis musculotendinous junction. IMPRESSION: Rotator cuff tear, osteoarthritis, probable labral tear, subluxed biceps tendon suspected and additio nal findings above.
== END | disposition home or self-care (01) ==
LOC: RADMRIMAIN 10:37
PROVIDERS: ATTEND Orthopaedic Surgery
DX: M75.122 Complete rotator cuff tear or rupture of left shoulder, not specified as traumatic (principal); M19.012 Primary osteoarthritis, left shoulder

== ENCOUNTER → 2019-11-10 | Outpatient (CLI) | payer MEDICARE ==
--- NOTE | 2019-11-10 16:01 | MR ---
MR neck without contrast HISTORY: Tongue carcinoma 2 years prior Multiplanar multisequence imaging through the neck Exam was not completed due to patient's inability to cooperate, patient in pain. Short axis measurement of 1.1 cm of a T1 hypointense focus within the left parotid gland, additional focus is present which is subcentimeter in size. No definite adenopathy. Possible mucus retention cys t in the right maxillary sinus. The tongue shows a somewhat heterogeneous signal possibly due to post treatment change. Airway is patent. Skull base is within normal limits as visualized. Submandibular g land on the left is not seen. IMPRESSION: Exam is limited for evaluation. Indeterminate foci within the parotid gland may represent nodes but are indeterminate. CT scan may be of benefit for better evaluation.
== END | disposition home or self-care (01) ==
LOC: RADMRIMAIN 10:06
PROVIDERS: ATTEND Internal Medicine Medical Oncology
DX: C02.1 Malignant neoplasm of border of tongue (principal)
CPT/HCPCS: 70540

== ENCOUNTER → 2019-11-11 | Outpatient (CLI) | payer MEDICARE ==
--- NOTE | 2019-11-11 14:37 | MR ---
EXAMINATION TYPE: MR lumbar spine wo con DATE OF EXAM: 11/11/2019 COMPARISON: Lumbar spine x-ray November 25, 2014. HISTORY: Spinal stenosis, lumbar region per order. Back pain for over 20 years with history of prior back surgery over 12 years ago per patient. TECHNIQUE: Multiplanar, multisequence imaging of the lumbar spine is performed without IV contrast. FINDINGS: Plain film shows suspected accessory artery right L1 rib. Sagittal images of the lumbar spi ne show vertebral body heights to remain satisfactory. There is persistent slight grade 1 retrolisthe sis of L3 on L4 and L5 and S1 with grade 1 anterolisthesis L4 on L5. Multilevel disc desiccation with fairly advanced disc space narrowing and vacuum disc phenomenon L4-L5 and moderate to advanced disc space narrowing and vacuum disc phenomenon L5-S1 levels. Ztpt-mb-mdrobtbg disc space narrowing with v acuum disc phenomenon L3-L4 level. The conus medullaris is normal in position and signal ending mid L 1 level. Heterogeneous Modic type II endplate changes anterior L2-L3 level. Scar tissue posterior L4- L5 level. [id number]-[id number]-[id number] multilevel anterior spurring mid to lower lumbar spine. Axial images show the T12-L1 and L1-L2 levels to appear within normal limits. Axial images at L2-L3 level mild broad disc bulge mildly efface the anterior thecal sac. Axial images at L3-L4 level shows spondylolisthesis and moderate broad disc bulge with central disc p rotrusion component effacing the anterior thecal sac. There is mild facet degenerative changes and li gament flavum hypertrophy effacing posterior lateral thecal sac. There is mild to moderate bilateral inferior neural foraminal narrowing. Axial images at L4-L5 level show spondylolisthesis with fairly advanced facet degenerative changes gr eater on the left effacing left thecal sac axial image 10. There is central displacement of nerve zhen ts thought present. There is moderate to advanced broad disc bulge effacing the anterior thecal sac. There is moderate to severe bilateral neural foraminal narrowing. Axial images at L5-S1 level show right-sided laminectomy defect. There is moderate facet degenerative changes bilaterally. There is spondylolisthesis with moderate broad disc bulge mildly effacing the a nterior thecal sac. There is moderate to severe right greater than left bilateral inferior neural for aminal narrowing. There is a simple appearing 2.6 cm thin-walled cyst posterior medially left kidney upper to midpole l evel axial image 28. IMPRESSION: Multilevel spondylolisthesis and degenerative changes mid to lower lumbar spine as detail ed above.
== END ==
LOC: RADMRIMAIN 12:32
PROVIDERS: ATTEND Internal Medicine
DX: M48.07 Spinal stenosis, lumbosacral region (principal); M43.17 Spondylolisthesis, lumbosacral region; M47.817 Spondylosis without myelopathy or radiculopathy, lumbosacral region; M51.27 Other intervertebral disc displacement, lumbosacral region; M48.061 Spinal stenosis, lumbar region without neurogenic claudication; M51.26 Other intervertebral disc displacement, lumbar region; M43.16 Spondylolisthesis, lumbar region
CPT/HCPCS: 72148

== ENCOUNTER 2020-02-24 15:28 | Inpatient (IN) | payer MEDICARE ==
[2020-02-24 15:33] LABS: Glucose,Whole Blood 81 mg/dL (75-99)
[2020-02-24 16:22] LABS: Glucose,Whole Blood 34 mg/dL (75-99)
[2020-02-24 16:49] LABS: Glucose,Whole Blood 72 mg/dL (75-99)
[2020-02-24] MEDS: DEXTROSE 50% SYRINGE 50 ML IVP STA ×3 (17:14→18:44)
--- NOTE | 2020-02-24 17:16 | CT ---
EXAMINATION TYPE: CT brain cspine wo con, CT facial bones wo con DATE OF EXAM: 02/24/2020 COMPARISON: NONE HISTORY: Patient found on floor. Presumed fall injury. Facial pain and swelling. Altered mental statu s. (accession [id number]), Patient found on floor. Facial injuries. (accession [id number]) Neck pain. CT DLP: 1121 mGycm. Automated Exposure Control for Dose Reduction was Utilized. TECHNIQUE: CT scan of the head, facial bones, and cervical spine are performed without contrast. FINDINGS: There is no acute intracranial hemorrhage or midline shift identified. Diffuse ventricula r and sulcal prominence. Low-attenuation in the periventricular white matter. The calvarium is intac t. Septum pellucidum vergae seen. Streak Artifact from dental cavities makes evaluation at this level is suboptimal. Visualized mandibl e is intact. Temporomandibular joints are maintained bilaterally. Zygomatic arches are intact bilater ally. Subtle minimally displaced fractures of the left nasal bones with mild to moderate soft tissue swelling from reference axial image 53. Nasal septum slightly deviated to left of midline without fra cture extension. Acute comminuted blowout type fracture of the left orbital floor with depression med ial aspect coronal image 38. Inferior rectus muscle is not suspiciously displaced. Globes are intact bilaterally. There is however fat stranding on the left involving the intraconal fat. There is modera te sized preseptal hematoma anteriorly. Small air-fluid level presumed hematoma in the left maxillary sinus. There is 1.7 cm mucous retention cyst or polyp anterior right maxillary sinus. Other paranasa l sinuses are clear. The maxillary intact. The pterygoid plates are intact. Additional mild to modera te subcutaneous hematoma extension inferiorly over the left maxillary sinus. Cervical spine is visualized in its entirety from C1 through upper thoracic levels and demonstrates s traightened alignment without evidence of acute fracture or dislocation. Prevertebral soft tissue ap pears within normal limits. The C1-C2 articulation is within normal limits on the coronal images. V ertebral body heights are maintained. Slight grade 1 retrolisthesis C5 on C6. Moderate disc space pantera rowing and spurring. Mild disc space narrowing with mild to moderate anterior spurring C6-C7 level. P osterior spur disc complexes efface the anterior thecal sac at these levels. Axial images show multil evel uncovertebral facet degenerative changes causing moderate bilateral bilateral neural foraminal n arrowing from referenced left C2-C3 and bilateral C3-C4 levels. Lung apices show no pneumothorax. IMPRESSION: 1. There is no acute fracture or dislocation evident in the cervical spine. 2. No acute intracranial hemorrhage or midline shift is seen. 3. Acute comminuted minimally displaced nasal bridge fracture. Acute comminuted displaced left sided orbital floor fracture without inferior rectus muscle entrapment. Moderate sized preseptal hematoma w ith more concern for visualized postseptal hematoma. Urgent ophthalmology consult is advised. Critical results communicated to ordering ER physician via telephone at time of dictation.
[2020-02-24 17:18] LABS: Glucose,Whole Blood 43 mg/dL (75-99)
[2020-02-24] MEDS ORDERED: PROPARACAINE 0.5% OPHTH DROPS 15 ML BTL LEFT EYE STA (17:29)
[2020-02-24 17:55] LABS: Glucose,Whole Blood 85 mg/dL (75-99)
[2020-02-24 18:20] LABS: ALT 12 U/L (4-49); AST 28 U/L (17-59); African American GFR (CKD) 40 (>60 ml/min/1.73 sqM); Albumin 3.5 g/dL (3.5-5.0); Alcohol <10 mg/dL; Alkaline Phosphatase 51 U/L (38-126); Anion Gap 8 mmol/L; Basophils % (A) 0 %; Blood Urea Nitrogen 27 mg/dL (9-20); Calcium 8.7 mg/dL (8.4-10.2); Carbon Dioxide 20 mmol/L (22-30); Chloride 111 mmol/L (98-107); Creatine Kinase 352 U/L (55-170); Eosinophils % (A) 0 %; Glucose 75 mg/dL (74-99); HGB 9.7 gm/dL (13.0-17.5); Hypochromasia Slight; Lymphocytes # (A) 0.6 k/uL (1.0-4.8); Lymphocytes % (A) 6 %; MCH 28.7 pg (25.0-35.0); MCHC 31.4 g/dL (31.0-37.0); MCV 91.6 fL (80.0-100.0); Mean Platelet Volume 8.3; Monocytes # (A) 0.6 k/uL (0-1.0); Monocytes % (A) 7 %; Neutrophils # (A) 8.3 k/uL (1.3-7.7); Neutrophils % (A) 86 %; Non-African American GFR(CKD) 34 (>60 ml/min/1.73 sqM); Platelet Count 303 k/uL (150-450); Potassium 4.9 mmol/L (3.5-5.1); RBC 3.38 m/uL (4.30-5.90); RDW 14.8 % (11.5-15.5); Sodium 139 mmol/L (137-145); Total Bilirubin 0.2 mg/dL (0.2-1.3); Total Protein 6.2 g/dL (6.3-8.2); WBC 9.7 k/uL (3.8-10.6)
[2020-02-24 18:31] LABS: INR 0.9 (<1.2); Partial Thromboplastin Time 23.9 sec (22.0-30.0); Prothrombin Time 9.5 sec (9.0-12.0)
[2020-02-24 18:33] LABS: Glucose,Whole Blood 41 mg/dL (75-99)
[2020-02-24] MEDS: DEXTROSE 10% IN WATER 1,000 ML with SODIUM CHLORIDE 2.5MEQ/ML VIAL 153.8 MEQ IV SCH (18:34)
[2020-02-24 19:13] LABS: Glucose,Whole Blood 129 mg/dL (75-99)
[2020-02-24 19:31] LABS: Glucose,Whole Blood 68 mg/dL (75-99)
--- NOTE | 2020-02-24 19:34 | XR ---
EXAMINATION TYPE: XR shoulder complete RT DATE OF EXAM: 02/24/2020 CLINICAL HISTORY: Pain after fall injury. TECHNIQUE: Three views of the right shoulder are obtained. COMPARISON: None. FINDINGS: Osseous structures are demineralized. There is no acute fracture/dislocation evident in the right shoulder. Moderate narrowing at acromioclavicular joint with capsular hypertrophy and mild spu rring. Suspect Hill-Sachs type lesion superolateral humeral head. No associated bony Bankart. Correl ate clinically for history of prior remote dislocation. Glenohumeral joint is preserved. Distal acrom ion morphology unremarkable. The visualized ribs are intact and unremarkable. IMPRESSION: There is no acute fracture or dislocation in the right shoulder.
--- NOTE | 2020-02-24 19:36 | XR ---
EXAMINATION TYPE: XR chest 2V DATE OF EXAM: 02/24/2020 COMPARISON: Chest x-ray March 08, 2010. HISTORY: Weakness. TECHNIQUE: Frontal and lateral views of the chest are obtained. FINDINGS: There is chronic parenchymal change bilaterally. The cardiac silhouette size is now mildl y enlarged . On lateral view there are tiny bilateral pleural effusions with additional right poste rior basilar opacity. The osseous structures are intact. IMPRESSION: Chronic changes and cardiomegaly with tiny bilateral pleural effusions and suspected pos terior right basilar acute infiltrate and/or atelectasis.
[2020-02-24] MEDS ORDERED: HYDROCORTISONE SUCCINATE 100 MG/2 ML VIAL IV STA (19:37)
[2020-02-24] MEDS ORDERED: OCTREOTIDE 200 MCG/ML 5 ML VIAL IVP STA (19:38)
--- NOTE | 2020-02-24 19:38 | XR ---
EXAMINATION TYPE: XR lumbar spine 2 or 3V DATE OF EXAM: 02/24/2020 CLINICAL HISTORY: Pain after fall injury. TECHNIQUE: Frontal and lateral images of the lumbar spine are obtained. COMPARISON: Lumbar spine x-ray 2014. MRI lumbar spine November 11, 2019 FINDINGS: There are 5 lumbar type vertebral bodies redemonstrated. The lumbar spine shows new surgi jae change of posterior interpedicular rods and screws transfixing L4-S1 levels bilaterally along wit h artificial disc material L4-L5 and L5-S1 levels and anterior fixating screws lumbosacral junction. Satisfactory alignment is seen. Bvjx-[id number]-csblmsix multilevel disc space narrowing superior to this is present. Vertebral body heights are maintained. Dbdajmvn-us-hohomp multilevel anterior and lateral sp urring. No acute fracture or dislocation noted. IMPRESSION: As above.
--- NOTE | 2020-02-24 19:40 | XR ---
EXAMINATION TYPE: XR thoracic spine 2V DATE OF EXAM: 02/24/2020 CLINICAL HISTORY: Fall with mid back pain. TECHNIQUE: Frontal, lateral, and swimmer's view of thoracic spine are obtained. COMPARISON: None. FINDINGS: Thoracic spine show slight dextroconvex scoliotic curvature centered lower thoracic spine. Osseous structures are demineralized. Moderate multilevel anterior and lateral spurring mid to lower thoracic spine. Vertebral body heights and disc space heights are fairly well preserved. Small bilate ral pleural effusions noted. IMPRESSION: No acute fracture or dislocation is seen in the thoracic spine.
[2020-02-24] MEDS ORDERED: OCTREOTIDE 100 MCG/ML INJ IVP STA (19:46)
[2020-02-24] MEDS ORDERED: GLUCAGON 1 MG/ML VIAL IVP STA (19:55)
--- NOTE | 2020-02-24 19:59 | ED ---
Altered Mental Status HPI - General Chief Complaint: Altered Mental Status Stated Complaint: Fall Time Seen by Provider: 02/24/20 16:12 Source: patient, EMS Mode of arrival: EMS Limitations: altered mental status - History of Present Illness Initial Comments: The patient is a 69-year-old male past history of diabetes mellitus, htn, tongue cancer who presents to the emergency department after he was found unresponsive at home. EMS provided the history stating that they were called to the patient's house and he was found down with visible injuries to the left side of his face. They did perform an Accu-Chek and the patient's blood glucose was 31. He was given 1 amp and increase to 175. The patient became alert however was confused. He is unsure what his medications are and if he took them today. The patient does arrive with a medication list, stating that he is on Levemir 100 units BID and Januvia 100 mg qd. Patient denies any recent changes in his medication. He cannot provide much history. He states that he felt well earlier today. He reports that his called EMS. We later find out the patient has been for 12 years. He lives alone and has a director life sales that comes into his house. We did talk to the patient's best friend who reports he has had issues over the past several months with worsening confusion. He has not seen his friend as of recently because of the pandemic however does occasionally check on him. We are unsure who called EMS. The patient denies any headaches. Does admit to decreased vision because of swelling over the left eye which has essentially swollen shut. He denies any chest pain or shortness of breath. Does admit to right shoulder pain when right arm is fully flexed. No unilateral numbness or weakness. Denies any pain in his lower extremities or pelvis. Admits to stiffness in his low back. There was no incontinence of urine or stool. Unsure of the patients downtime. No abdominal pain. Remainder of the HPI is limited because of the patient's current altered mentation - Related Data Home Medications Medication Instructions Recorded Confirmed Insulin Detemir [Levemir Flextouch] 57 units SQ BID 11/22/16 02/24/20 sitaGLIPtin [Januvia] 100 mg PO DAILY 01/24/18 02/24/20 Albuterol Sulfate [Proair Hfa] 2 puff INHALATION RT-Q6H PRN 02/24/20 02/24/20 HYDROcodone/APAP 7.5-325MG [[place] 1 tab PO Q8H 02/24/20 02/24/20 7.5-325] Lisinopril [Prinivil] 5 mg PO Q12H 02/24/20 02/24/20 Methocarbamol [Robaxin-750] 750 mg PO Q8H 02/24/20 02/24/20 Metoprolol Succinate [Toprol XL] 25 mg PO BID 02/24/20 02/24/20 NIFEdipine [Procardia XL] 90 mg PO DAILY 02/24/20 02/24/20 Omeprazole [PriLOSEC] 40 mg PO DAILY 02/24/20 02/24/20 Sennosides [Senna] 8.6 mg PO BID 02/24/20 02/24/20 Allergies Allergy/AdvReac Type Severity Reaction Status Date / Time No Known Allergies Allergy Verified 02/24/20 20:55 Review of Systems ROS Statement: Those systems with pertinent positive or pertinent negative responses have been documented in the HPI. ROS Other: All systems not noted in ROS Statement are negative. Past Medical History Past Medical History: Cancer, Diabetes Mellitus, Hyperlipidemia, Hypertension Additional Past Medical History / Comment(s): cancerous lesion under tongue=has been removed History of Any Multi-Drug Resistant Organisms: None Reported Past Surgical History: Tonsillectomy Additional Past Surgical History / Comment(s): cancer removal under tongue. Two back surgeries Past Anesthesia/Blood Transfusion Reactions: No Reported Reaction Past Psychological History: No Psychological Hx Reported Smoking Status: Never smoker Past Alcohol Use History: None Reported Past Drug Use History: None Reported - Past Family History Father Family Medical History: Hypertension, Myocardial Infarction (MT) Mother Family Medical History: Cancer Additional Family Medical History / Comment(s): Breast CA General Exam Limitations: altered mental status General appearance: alert, in no apparent distress Head exam: Present: other (visible trauma to left side of face. 3 skin tears visible - one involving left eyelid measuring 1.0 x 0.5 cm, one adjacent to lat eral canthus which measures less than 0.5 cm. Additional skin tear below left eye measuring 0.5 cm. No deep structure involvement. Bleeding controlled at this time. ) Eye exam: Present: PERRL, EOMI, periorbital swelling, periorbital tenderness, other (EOMI in all armenta without signs of entraptment. There is significant chemosis of the left eye however no hyphema or subconjuntival hemorrhage noted. Pupil equally reactive to light - 4 to 3. No teardrop pupil. Negative racoon eyes. Significant swelling to left superior eyelid to where the left eye is complete swollen shut - only able to opened by jose force from examiner. Patient reports pain at skin tear at lateral canthus however denies globe pain. No septal hematoma. clotted blood at opening of bilateral nares however no active bleeding. No blood in the posterior pharynx. ). Absent: scleral icterus, conjunctival injection ENT exam: Present: normal oropharynx, mucous membranes moist, TM's normal bilaterally, other (no hemotympanum) Neck exam: Present: normal inspection, other (in c-collar upon arrival). Absent: tenderness, meningismus, lymphadenopathy Respiratory exam: Present: normal lung sounds bilaterally. Absent: respiratory distress, wheezes, rales, rhonchi, stridor Cardiovascular Exam: Present: normal rhythm, bradycardia, normal heart sounds. Absent: systolic murmur, diastolic murmur, rubs, gallop, clicks GI/Abdominal exam: Present: soft, normal bowel sounds. Absent: distended, tenderness, guarding, rebound, rigid Extremities exam: Present: normal inspection, full ROM, normal capillary refill, other (moves all 4 extremities without difficulty. Intact sensation). Absent: tenderness, pedal edema, joint swelling, calf tenderness Back exam: Present: full ROM, paraspinal tenderness (lumbar region). Absent: ve rtebral tenderness Neurological exam: Present: alert, other (oriented to self) Psychiatric exam: Present: normal affect, normal mood Course Vital Signs 02/24/20 02/24/20 02/24/20 15:37 15:40 16:00 Temperature 97.7 F Pulse Rate 57 L 57 L 57 L Pulse Rate [ Crutch Maker ] Respiratory 18 18 18 Rate Blood Pressure 113/55 113/55 119/55 Blood Pressure [Left Arm] O2 Sat by Pulse 97 97 98 Oximetry 02/24/20 02/24/20 02/24/20 17:01 17:30 18:03 Temperature Pulse Rate 57 L 56 L 55 L Pulse Rate [ Crutch Maker ] Respiratory 18 18 18 Rate Blood Pressure 110/53 108/53 115/83 Blood Pressure [Left Arm] O2 Sat by Pulse 98 98 98 Oximetry 02/24/20 02/24/20 02/24/20 18:30 19:00 21:20 Temperature 98.8 F Pulse Rate 55 L 55 L Pulse Rate [ 53 L Crutch Maker ] Respiratory 18 18 17 Rate Blood Pressure 124/58 127/58 Blood Pressure 127/55 [Left Arm] O2 Sat by Pulse 99 99 Oximetry 02/24/20 21:35 Temperature Pulse Rate 65 Pulse Rate [ Crutch Maker ] Respiratory 18 Rate Blood Pressure 128/58 Blood Pressure [Left Arm] O2 Sat by Pulse 97 Oximetry Medical Decision Making - Medical Decision Making Upon arrival the patient was promptly placed into room 27. A thorough history was attempted and a full physical exam was performed. EMS did provide the patient with 1 amp of D50. He does have a stable blood sugar upon arrival. The patient is confused and therefore we do attempt to contact family members in regards to patient's history. We do attempt to obtain records from [facility] however the patient has never been seen there before. The patient does have every 30 minute Accu-Cheks which demonstrates recurrent hypoglycemia. The patient was given 3 amps (1 prehospital and 2 while hospitalized) of dextrose total prior to being placed on a D10 drip at 75 cc per hour. I did conduct laboratory studies and the patient was sent over for a CT of his brain, cervical spine, facial bones. Facial CT demonstrates no acute fracture dislocation evident cervical spine. No intracranial hemorrhage or midline shift. Acute comminuted minimally displaced nasal bridge fracture. Acute comminuted displaced left-sided orbital floor fracture without an inferior rectus muscle entrapment. Moderate sized preseptal hematoma with more concern for visualized post-septal hematoma. I discussed this result with Dr. Bains at 1725. Pressures were then immediately obtained in the patient's eyes. He does demonstrate a pressure of 9-10 in the right eye, 38 in the left eye. Visual acuity was 20/400 in the right eye and 20/200 in the left eye. Patient wears glasses however they do not arrive with the patient. I immediately discussed the case with Dr. Colbert at 1740 who states that there is no indication for canthotomy at this time. He is made aware that the patient will be admitted to the intensive care unit and states that he will evaluate the patient tomorrow. EOMI of the bilateral eyes and patient denies any eye pain. The patient was then sent over for a shoulder, chest, thoracic and lumbar spine x-ray which did not demonstrate any acute fractures. Spoke with Dr. lizama at 1999 in regards to recurrent hypoglycemia. Dr. Lizama to be on consult in regards to the patient's care. He does recommend Glucagon administration and oral feeds. PAtient given 1 mg Glucagon immediately. The patients labs and images are reviewed. After I identify that the patient will not require any surgical procedures, he is given something to eat. Tetanus was updated. Skin tears are superficial with no need of suture repair. Spoke with Dr. Mosley at 2004 in regards to the patient's injuries and he did agree to hospital admission (trauma admission) Spoke with Dr. Villar who agreed to ICU admit as the patient is on D10 drip with q30 acu-checks. The patient is updated in regards to his care and agrees to the treatment plan. Patient transferred to the ICU in stable condition - Lab Data Result diagrams: 02/25/20 03:54 02/25/20 03:54 Lab Results 02/24/20 02/24/20 02/24/20 Range/Units 15:33 16:12 16:47 WBC (3.8-10.6) k/uL RBC (4.30-5.90) m/uL Hgb (13.0-17.5) gm/dL Hct (39.0-53.0) % MCV (80.0-100.0) fL MCH (25.0-35.0) pg MCHC (31.0-37.0) g/dL RDW (11.5-15.5) % Plt Count (150-450) k/uL Neutrophils % % Lymphocytes % % Monocytes % % Eosinophils % % Basophils % % Neutrophils # (1.3-7.7) k/uL Lymphocytes # (1.0-4.8) k/uL Monocytes # (0-1.0) k/uL Eosinophils # (0-0.7) k/uL Basophils # (0-0.2) k/uL Hypochromasia PT (9.0-12.0) sec INR (<1.2) APTT (22.0-30.0) sec Sodium (137-145) mmol/L Potassium (3.5-5.1) mmol/L Chloride (98-107) mmol/L Carbon Dioxide (22-30) mmol/L Anion Gap mmol/L BUN (9-20) mg/dL Creatinine (0.66-1.25) mg/dL Est GFR (CKD-EPI)AfAm (>60 ml/min/1.73 sqM) Est GFR (CKD-EPI)NonAf (>60 ml/min/1.73 sqM) Glucose (74-99) mg/dL POC Glucose (mg/dL) 81 34 L 72 L (75-99) mg/dL POC Glu Speaking Unit Assembler ID JavierCarolyncyn, Harriet Herrera, Carolyn Calcium (8.4-10.2) mg/dL Total Bilirubin (0.2-1.3) mg/dL AST (17-59) U/L ALT (4-49) U/L Alkaline Phosphatase (38-126) U/L Creatine Kinase (55-170) U/L Troponin I (0.000-0.034) ng/mL NT-Pro-B Natriuret Pep pg/mL Total Protein (6.3-8.2) g/dL Albumin (3.5-5.0) g/dL Urine Color Urine Appearance (Clear) Urine pH (5.0-8.0) Ur Specific [place] (1.001-1.035) Urine Protein (Negative) Urine Glucose (UA) (Negative) Urine Ketones (Negative) Urine Blood (Negative) Urine Nitrite (Negative) Urine Bilirubin (Negative) Urine Urobilinogen (<2.0) mg/dL Ur Leukocyte Esterase (Negative) Urine RBC (0-5) /hpf Urine WBC (0-5) /hpf Ur Squamous Epith Cells (0-4) /hpf Amorphous Sediment (None) /hpf Hyaline Casts (0-2) /lpf Urine Mucus (None) /hpf Serum Alcohol mg/dL 02/24/20 02/24/20 02/24/20 Range/Units 17:16 17:50 17:50 WBC 9.7 (3.8-10.6) k/uL RBC 3.38 L (4.30-5.90) m/uL Hgb 9.7 L (13.0-17.5) gm/dL Hct 31.0 L (39.0-53.0) % MCV 91.6 (80.0-100.0) fL MCH 28.7 (25.0-35.0) pg MCHC 31.4 (31.0-37.0) g/dL RDW 14.8 (11.5-15.5) % Plt Count 303 (150-450) k/uL Neutrophils % 86 % Lymphocytes % 6 % Monocytes % 7 % Eosinophils % 0 % Basophils % 0 % Neutrophils # 8.3 H (1.3-7.7) k/uL Lymphocytes # 0.6 L (1.0-4.8) k/uL Monocytes # 0.6 (0-1.0) k/uL Eosinophils # 0.0 (0-0.7) k/uL Basophils # 0.0 (0-0.2) k/uL Hypochromasia Slight PT 9.5 (9.0-12.0) sec INR 0.9 (<1.2) APTT 23.9 (22.0-30.0) sec Sodium (137-145) mmol/L Potassium (3.5-5.1) mmol/L Chloride (98-107) mmol/L Carbon Dioxide (22-30) mmol/L Anion Gap mmol/L BUN (9-20) mg/dL Creatinine (0.66-1.25) mg/dL Est GFR (CKD-EPI)AfAm (>60 ml/min/1.73 sqM) Est GFR (CKD-EPI)NonAf (>60 ml/min/1.73 sqM) Glucose (74-99) mg/dL POC Glucose (mg/dL) 43 L (75-99) mg/dL POC Glu Speaking Unit Assembler ID Dori Moss Calcium (8.4-10.2) mg/dL Total Bilirubin (0.2-1.3) mg/dL AST (17-59) U/L ALT (4-49) U/L Alkaline Phosphatase (38-126) U/L Creatine Kinase (55-170) U/L Troponin I (0.000-0.034) ng/mL NT-Pro-B Natriuret Pep pg/mL Total Protein (6.3-8.2) g/dL Albumin (3.5-5.0) g/dL Urine Color Urine Appearance (Clear) Urine pH (5.0-8.0) Ur Specific [place] (1.001-1.035) Urine Protein (Negative) Urine Glucose (UA) (Negative) Urine Ketones (Negative) Urine Blood (Negative) Urine Nitrite (Negative) Urine Bilirubin (Negative) Urine Urobilinogen (<2.0) mg/dL Ur Leukocyte Esterase (Negative) Urine RBC (0-5) /hpf Urine WBC (0-5) /hpf Ur Squamous Epith Cells (0-4) /hpf Amorphous Sediment (None) /hpf Hyaline Casts (0-2) /lpf Urine Mucus (None) /hpf Serum Alcohol mg/dL 02/24/20 02/24/20 02/24/20 Range/Units 17:50 17:50 17:50 WBC (3.8-10.6) k/uL RBC (4.30-5.90) m/uL Hgb (13.0-17.5) gm/dL Hct (39.0-53.0) % MCV (80.0-100.0) fL MCH (25.0-35.0) pg MCHC (31.0-37.0) g/dL RDW (11.5-15.5) % Plt Count (150-450) k/uL Neutrophils % % Lymphocytes % % Monocytes % % Eosinophils % % Basophils % % Neutrophils # (1.3-7.7) k/uL Lymphocytes # (1.0-4.8) k/uL Monocytes # (0-1.0) k/uL Eosinophils # (0-0.7) k/uL Basophils # (0-0.2) k/uL Hypochromasia PT (9.0-12.0) sec INR (<1.2) APTT (22.0-30.0) sec Sodium 139 (137-145) mmol/L Potassium 4.9 (3.5-5.1) mmol/L Chloride 111 H (98-107) mmol/L Carbon Dioxide 20 L (22-30) mmol/L Anion Gap 8 mmol/L BUN 27 H (9-20) mg/dL Creatinine 1.92 H (0.66-1.25) mg/dL Est GFR (CKD-EPI)AfAm 40 (>60 ml/min/1.73 sqM) Est GFR (CKD-EPI)NonAf 34 (>60 ml/min/1.73 sqM) Glucose 75 (74-99) mg/dL POC Glucose (mg/dL) (75-99) mg/dL POC Glu Speaking Unit Assembler ID Calcium 8.7 (8.4-10.2) mg/dL Total Bilirubin 0.2 (0.2-1.3) mg/dL AST 28 (17-59) U/L ALT 12 (4-49) U/L Alkaline Phosphatase 51 (38-126) U/L Creatine Kinase 352 H (55-170) U/L Troponin I <0.012 (0.000-0.034) ng/mL NT-Pro-B Natriuret Pep 3380 pg/mL Total Protein 6.2 L (6.3-8.2) g/dL Albumin 3.5 (3.5-5.0) g/dL Urine Color Urine Appearance (Clear) Urine pH (5.0-8.0) Ur Specific [place] (1.001-1.035) Urine Protein (Negative) Urine Glucose (UA) (Negative) Urine Ketones (Negative) Urine Blood (Negative) Urine Nitrite (Negative) Urine Bilirubin (Negative) Urine Urobilinogen (<2.0) mg/dL Ur Leukocyte Esterase (Negative) Urine RBC (0-5) /hpf Urine WBC (0-5) /hpf Ur Squamous Epith Cells (0-4) /hpf Amorphous Sediment (None) /hpf Hyaline Casts (0-2) /lpf Urine Mucus (None) /hpf Serum Alcohol <10 mg/dL 02/24/20 02/24/20 02/24/20 Range/Units 17:54 18:31 18:53 WBC (3.8-10.6) k/uL RBC (4.30-5.90) m/uL Hgb (13.0-17.5) gm/dL Hct (39.0-53.0) % MCV (80.0-100.0) fL MCH (25.0-35.0) pg MCHC (31.0-37.0) g/dL RDW (11.5-15.5) % Plt Count (150-450) k/uL Neutrophils % % Lymphocytes % % Monocytes % % Eosinophils % % Basophils % % Neutrophils # (1.3-7.7) k/uL Lymphocytes # (1.0-4.8) k/uL Monocytes # (0-1.0) k/uL Eosinophils # (0-0.7) k/uL Basophils # (0-0.2) k/uL Hypochromasia PT (9.0-12.0) sec INR (<1.2) APTT (22.0-30.0) sec Sodium (137-145) mmol/L Potassium (3.5-5.1) mmol/L Chloride (98-107) mmol/L Carbon Dioxide (22-30) mmol/L Anion Gap mmol/L BUN (9-20) mg/dL Creatinine (0.66-1.25) mg/dL Est GFR (CKD-EPI)AfAm (>60 ml/min/1.73 sqM) Est GFR (CKD-EPI)NonAf (>60 ml/min/1.73 sqM) Glucose (74-99) mg/dL POC Glucose (mg/dL) 85 41 L 129 H (75-99) mg/dL POC Glu Speaking Unit Assembler JUSTIN Herrera, Carolyn Moss, Shruthi Wolf Calcium (8.4-10.2) mg/dL Total Bilirubin (0.2-1.3) mg/dL AST (17-59) U/L ALT (4-49) U/L Alkaline Phosphatase (38-126) U/L Creatine Kinase (55-170) U/L Troponin I (0.000-0.034) ng/mL NT-Pro-B Natriuret Pep pg/mL Total Protein (6.3-8.2) g/dL Albumin (3.5-5.0) g/dL Urine Color Urine Appearance (Clear) Urine pH (5.0-8.0) Ur Specific [place] (1.001-1.035) Urine Protein (Negative) Urine Glucose (UA) (Negative) Urine Ketones (Negative) Urine Blood (Negative) Urine Nitrite (Negative) Urine Bilirubin (Negative) Urine Urobilinogen (<2.0) mg/dL Ur Leukocyte Esterase (Negative) Urine RBC (0-5) /hpf Urine WBC (0-5) /hpf Ur Squamous Epith Cells (0-4) /hpf Amorphous Sediment (None) /hpf Hyaline Casts (0-2) /lpf Urine Mucus (None) /hpf Serum Alcohol mg/dL 02/24/20 02/24/2020 Range/Units 19:29 19:36 19:59 WBC (3.8-10.6) k/uL RBC (4.30-5.90) m/uL Hgb (13.0-17.5) gm/dL Hct (39.0-53.0) % MCV (80.0-100.0) fL MCH (25.0-35.0) pg MCHC (31.0-37.0) g/dL RDW (11.5-15.5) % Plt Count (150-450) k/uL Neutrophils % % Lymphocytes % % Monocytes % % Eosinophils % % Basophils % % Neutrophils # (1.3-7.7) k/uL Lymphocytes # (1.0-4.8) k/uL Monocytes # (0-1.0) k/uL Eosinophils # (0-0.7) k/uL Basophils # (0-0.2) k/uL Hypochromasia PT (9.0-12.0) sec INR (<1.2) APTT (22.0-30.0) sec Sodium (137-145) mmol/L Potassium (3.5-5.1) mmol/L Chloride (98-107) mmol/L Carbon Dioxide (22-30) mmol/L Anion Gap mmol/L BUN (9-20) mg/dL Creatinine (0.66-1.25) mg/dL Est GFR (CKD-EPI)AfAm (>60 ml/min/1.73 sqM) Est GFR (CKD-EPI)NonAf (>60 ml/min/1.73 sqM) Glucose (74-99) mg/dL POC Glucose (mg/dL) 68 L 54 L (75-99) mg/dL POC Glu Speaking Unit Assembler ID Jeanette, [place] Jeanette, [place] Calcium (8.4-10.2) mg/dL Total Bilirubin (0.2-1.3) mg/dL AST (17-59) U/L ALT (4-49) U/L Alkaline Phosphatase (38-126) U/L Creatine Kinase (55-170) U/L Troponin I (0.000-0.034) ng/mL NT-Pro-B Natriuret Pep pg/mL Total Protein (6.3-8.2) g/dL Albumin (3.5-5.0) g/dL Urine Color Yellow Urine Appearance Cloudy (Clear) Urine pH 5.5 (5.0-8.0) Ur Specific [place] 1.015 (1.001-1.035) Urine Protein 3+ H (Negative) Urine Glucose (UA) Negative (Negative) Urine Ketones Negative (Negative) Urine Blood Negative (Negative) Urine Nitrite Negative (Negative) Urine Bilirubin Negative (Negative) Urine Urobilinogen <2.0 (<2.0) mg/dL Ur Leukocyte Esterase Negative (Negative) Urine RBC 1 (0-5) /hpf Urine WBC 4 (0-5) /hpf Ur Squamous Epith Cells <1 (0-4) /hpf Amorphous Sediment Few H (None) /hpf Hyaline Casts 121 H (0-2) /lpf Urine Mucus Rare H (None) /hpf Serum Alcohol mg/dL - EKG Data EKG Comments: EKG demonstrates a sinus bradycardia with a ventricular rate of 55. CT interval 124. QTC 468. There is a right bundle branch block. No acute ST segment elevations or depressions concerning for ischemic changes Critical Care Time Critical Care Time: Yes Critical Care Time: 46 minutes for emergent consultation with ophthalmology. Also consulted integration assistant and hospitalist. Patient intiated on D10 drip for reccurent hypoglycemia and admitted to the ICU. Disposition Clinical Impression: Fall, Blunt trauma of face, Orbital wall fracture, Hypoglycemia, Retrobulbar hematoma Disposition: ADMITTED IP TO THIS [facility] Condition: Serious Is patient prescribed a controlled substance at d/c from ED?: No Decision to Admit Reason: Admit from EC Decision Date: 02/24/20 Decision Time: 20:13
[2020-02-24 20:11] LABS: Glucose,Whole Blood 54 mg/dL (75-99)
[2020-02-24 20:11] LABS: Amorphous Sediment,Urine Few /hpf; Appearance,Urine Cloudy (Clear); Bilirubin,Urine Negative (Negative); Blood,Urine Negative (Negative); Color,Urine Yellow; Glucose,Urine (UA) Negative (Negative); Hyaline Casts,Urine 121 /lpf (0-2); Ketones,Urine Negative (Negative); Leukocyte Esterase,Urine Negative (Negative); Mucus,Urine Rare /hpf; Nitrite,Urine Negative (Negative); PH, Urine 5.5 (5.0-8.0); Protein,Urine 3+ (Negative); RBC,Urine 1 /hpf (0-5); Specific Gravity,Urine 1.015 (1.001-1.035); Squamous Epithelial Cell,Urine <1 /hpf (0-4); Urobilinogen,Urine <2.0 mg/dL (<2.0); WBC,Urine 4 /hpf (0-5)
[2020-02-24] MEDS ORDERED: NALOXONE 0.4 MG/ML 1 ML VIAL IV PRN (20:13)
[2020-02-24 20:37] LABS: Glucose,Whole Blood 82 mg/dL (75-99)
[2020-02-24 20:39] LABS: Glucose,Whole Blood 90 mg/dL (75-99)
[2020-02-24 21:39] LABS: Glucose,Whole Blood 83 mg/dL (75-99)
[2020-02-24 22:16] LABS: Glucose,Whole Blood 75 mg/dL (75-99)
[2020-02-24 23:03] LABS: Glucose,Whole Blood 71 mg/dL (75-99)
[2020-02-25 00:06] LABS: Glucose,Whole Blood 92 mg/dL (75-99)
[2020-02-25] MEDS ORDERED: DIPH,PERTUS(ACELL)TETVAC-LF 0.5 ML VIAL IM ONE (00:19)
[2020-02-25 01:09] LABS: Glucose,Whole Blood 111 mg/dL (75-99)
[2020-02-25 02:20] LABS: Glucose,Whole Blood 135 mg/dL (75-99)
[2020-02-25 04:00] LABS: Glucose,Whole Blood 173 mg/dL (75-99)
[2020-02-25 04:45] LABS: Basophils % (A) 0 %; Eosinophils % (A) 0 %; HCT 26.5 % (39.0-53.0); HGB 8.3 gm/dL (13.0-17.5); Lymphocytes # (A) 0.4 k/uL (1.0-4.8); Lymphocytes % (A) 6 %; MCH 28.6 pg (25.0-35.0); MCHC 31.2 g/dL (31.0-37.0); MCV 91.8 fL (80.0-100.0); Mean Platelet Volume 8.5; Monocytes # (A) 0.2 k/uL (0-1.0); Monocytes % (A) 3 %; Neutrophils # (A) 6.4 k/uL (1.3-7.7); Neutrophils % (A) 90 %; Platelet Count 253 k/uL (150-450); RBC 2.89 m/uL (4.30-5.90); RDW 14.8 % (11.5-15.5); WBC 7.1 k/uL (3.8-10.6)
[2020-02-25 04:46] LABS: Calcium 7.9 mg/dL (8.4-10.2); Potassium 5.5 mmol/L (3.5-5.1)
[2020-02-25 05:09] LABS: Glucose,Whole Blood 198 mg/dL (75-99)
[2020-02-25] MEDS: DEXTROSE 10% IN WATER 1,000 ML with SODIUM CHLORIDE 2.5MEQ/ML VIAL 153.8 MEQ IV SCH (05:13)
[2020-02-25 06:52] LABS: Glucose,Whole Blood 196 mg/dL (75-99)
[2020-02-25 07:54] LABS: Glucose,Whole Blood 194 mg/dL (75-99)
--- NOTE | 2020-02-25 10:47 | CONS ---
CONSULTATION DATE OF SERVICE: 02/25/2020. TIME: 8:05 am This is a 69-year-old white male well known to my practice with a history of diabetes. The patient was admitted to the hospital after being found unresponsive at home. He sustained blunt trauma to the left periorbital region and presumably suffered during the fall. He was admitted through the emergency room and a CAT scan was performed which was positive for a wall fracture of the left orbit. There is significant swelling. The patient is currently awake and alert and is in no apparent distress. HEENT: Exam visual acuity without correction measured 20/40 right eye and 2100 left eye. The pupils are equal, reactive to light. There was no efferent defects. Extraocular movements were full in all gaze positions. There was no history of diplopia in any gaze position. On exam, there is significant soft tissue swelling in the left periorbita. There was an abrasion in over the left lateral canthus. The patient was able to spontaneously open his left eye as the swelling had not caused complete closure. The conjunctivae exhibited +1 chemosis temporally with a small subconjunctival hemorrhage. The corneas were clear. The anterior chambers were deep and well formed. The iris was normal. There was no apparent lens trauma. Fundus exam, revealed normal-appearing maculae vessels and discs. 1. Blunt tissue trauma with orbital fracture, left side. As there is no apparent entrapment at this time and he remains asymptomatic, it is not necessary to intervene in terms of orbital fracture repair at this time. Upon discharge, followup in my office and we will determine whether any symptoms have occurred. Many of these orbital fractures can be managed conservatively with spontaneous healing being the norm in many cases. Of course, we will make that determination between 10 days and 2 weeks after this incident occurred. MMODL / IJN: [id number] /
[2020-02-25] MEDS ORDERED: ALBUTEROL HFA INHALER INHALATION PRN (10:55)
[2020-02-25] MEDS ORDERED: HYDROcodone/APAP 7.5-325MG 1 EACH TAB PO SCH (11:00)
--- NOTE | 2020-02-25 11:26 | CONS ---
CONSULTATION PULMONARY/CRITICAL CARE CONSULTATION: DATE OF SERVICE: 02/25/2020 REASON FOR CONSULTATION: Status post fall with trauma to the facial area. This is a 69-year-old male with a history of diabetes, hypertension, hyperlipidemia, back surgery, and tongue cancer. He apparently was found unresponsive at home. He was brought in by EMS. He apparently was not really able to give much history other than he was found down on his facial area at home with visible injuries to his left side of his face. Initially Accu-Chek was done and his blood glucose was only 31. He was given 1 amp of D50 and his blood glucose increased to 175. He apparently was still confused at that point. Not sure exactly what happened. Talking to him today, the patient states that his blood sugar may have gotten low and that is why he maybe ended up the way he did. He really does not have any recollection of exactly what happened. Anyway, he is feeling pretty much back to normal right now. He does have some pain and swelling obviously to the left facial area. He was tested for COVID-19. He was negative. He is currently on room air. He was getting D10W, but that has been turned off. He had a number of x-rays in the emergency room including thoracic spine x-rays which were negative, lumbar spine x-rays which were negative, chest x-ray which was essentially negative. Shoulder x-ray negative. Brain CT negative. C-spine x-ray is negative. His facial x-rays and CAT scan showed a nasal fracture, left orbital floor fracture, and retrobulbar hematoma. Ophthalmology apparently did not think the patient need anything done surgically at this time. Other than the obvious discomfort and swelling from the trauma to the left side of his face, the patient actually is doing reasonably well.. MEDICATIONS: Reviewed. They include insulin, Januvia, albuterol, [place], lisinopril, Robaxin, metoprolol, Procardia, Prilosec, and senna. ALLERGIES: Denied. MEDICAL HISTORY: As mentioned includes hypertension and hyperlipidemia as well as diabetes and tongue cancer. The patient also had recent back surgery. SURGICAL HISTORY: Includes a tonsillectomy and tongue cancer removed surgically. SOCIAL HISTORY: Negative for tobacco. Denies any alcohol or illicit drug use. FAMILY HISTORY: Positive for father with myocardial infarction and hypertension and mother with breast cancer. REVIEW OF SYSTEMS: CONSTITUTIONAL: No memory of the circumstances which led him to be brought into the hospital. NEUROLOGIC: Negative. HEENT: Left-sided facial trauma. CARDIOVASCULAR: Negative. PULMONARY: Negative. GI: Negative. : Negative. RHEUMATOLOGIC: Negative. IMMUNOLOGIC: Negative. ENDOCRINOLOGIC: Negative. DERMATOLOGIC: Negative. Current vital signs are reviewed. His vital signs include temperature 99.3, heart rate 66, respiratory rate is 10, blood pressure 131/53 mean 79, room air saturation 96%. Appears in no acute distress. HEENT: Examination is grossly unremarkable other than for the facial trauma. He has a hematoma on the left side of his left upper lip as well as significant periorbital edema and ecchymoses. Some abrasions and other trauma are noted to the left side of the face. NECK: Supple, full range of motion. No adenopathy. CARDIOVASCULAR: Examination reveals regular rhythm and rate. Heart rate 66 beats per minute. S1, S2 normal. LUNGS: Reveal clear breath sounds. ABDOMEN: Soft. EXTREMITIES: Intact, otherwise. SKIN: Without rash. NEUROLOGIC: Examination is brief but nonfocal. LABS: Reviewed. White count 7.1, hemoglobin 8.3, hematocrit 26.5, platelet count 353,000. Sodium 136, potassium 5.5, chloride 113, carbon dioxide 18, anion gap is 5. BUN and creatinine were 28 and 1.8. X-rays have all been reviewed. EKG shows sinus bradycardia. Medications are reviewed. He is currently just on Narcan p.r.n. Not getting any IV fluids, D10W has been turned off. He is not getting any supplemental oxygen. ASSESSMENT: 1. Possible hypoglycemia with syncopal episode and left facial trauma including left orbital floor fracture, nasal fracture, and retrobulbar hematoma. 2. History of diabetes mellitus. 3. Hypertension. 4. Hyperlipidemia. 5. History of tongue cancer, status post surgery. 6. Recent back surgery. 7. Lifelong nonsmoker. PLAN: The patient is doing well. He could be transferred out to the general medical floor. Will see what trauma has to say. Apparently Dr. Lizama is going to take over medical management. No additional recommendations made at this time. The patient appears to be relatively stable. Ophthalmology was called. They will see him today. MMODL / IJN: [id number] /
[2020-02-25] MEDS ORDERED: HYDROcodone/APAP 7.5-325MG 1 EACH TAB PO PRN (11:27)
[2020-02-25 11:33] LABS: Glucose,Whole Blood 317 mg/dL (75-99)
[2020-02-25] MEDS: INSULIN ASPART (NovoLOG) 100 UNIT/ML VIAL SQ SCH ×3 (11:53→20:34)
[2020-02-25] MEDS: LISINOPRIL 5 MG TAB PO SCH ×2 (11:54→20:39)
[2020-02-25] MEDS: SENNOSIDES 8.6 MG TAB PO SCH ×2 (11:56→20:40)
[2020-02-25] MEDS: PANTOPRAZOLE 40 MG TABLET PO SCH (11:56)
[2020-02-25] MEDS: METOPROLOL SUCCINATE (ER) 25 MG TAB.ER.24H PO SCH ×2 (11:56→20:40)
[2020-02-25] MEDS ORDERED: INSULIN REGULAR 100 UNIT/ML VIAL SQ ONE (14:24)
[2020-02-25] MEDS: METHOCARBAMOL 750 MG TAB PO SCH ×2 (15:11→20:40)
[2020-02-25] MEDS: LINAGLIPTIN 5 MG TABLET PO SCH (15:11)
[2020-02-25] MEDS: NIFEdipine XL 90 MG TAB.ER.24 PO SCH (15:11)
--- NOTE | 2020-02-25 16:02 | P.GSHP ---
History of Present Illness H&P Date: 02/25/20 Chief Complaint: Ground-level fall This a 69-year-old male was found unresponsive at home. The patient was brought in by EMS. Apparently his blood sugar was 31 in the field. He has an obvious left facial trauma. Apparently his called EMS. He is unable to give any s ignificant medical history. Patient's found have a left orbital fracture. Past Medical History Past Medical History: Cancer, Diabetes Mellitus, Hyperlipidemia, Hypertension Additional Past Medical History / Comment(s): cancerous lesion under tongue=has been removed History of Any Multi-Drug Resistant Organisms: None Reported Past Surgical History: Tonsillectomy Additional Past Surgical History / Comment(s): cancer removal under tongue. Two back surgeries Past Anesthesia/Blood Transfusion Reactions: No Reported Reaction Past Psychological History: No Psychological Hx Reported Smoking Status: Never smoker Past Alcohol Use History: None Reported Past Drug Use History: None Reported - Past Family History Father Family Medical History: Hypertension, Myocardial Infarction ([place]) Mother Family Medical History: Cancer Additional Family Medical History / Comment(s): Breast CA Medications and Allergies Home Medications Medication Instructions Recorded Confirmed Type Insulin Detemir [Levemir Flextouch] 57 units SQ BID 11/22/16 02/24/20 History sitaGLIPtin [Januvia] 100 mg PO DAILY 01/24/18 02/24/20 History Albuterol Sulfate [Proair Hfa] 2 puff INHALATION RT-Q6H PRN 02/24/20 02/24/20 History HYDROcodone/APAP 7.5-325MG [[place] 1 tab PO Q8H 02/24/20 02/24/20 History 7.5-325] Lisinopril [Prinivil] 5 mg PO Q12H 02/24/20 02/24/20 History Methocarbamol [Robaxin-750] 750 mg PO Q8H 02/24/20 02/24/20 History Metoprolol Succinate [Toprol XL] 25 mg PO BID 02/24/20 02/24/20 History NIFEdipine [Procardia XL] 90 mg PO DAILY 02/24/20 02/24/20 History Omeprazole [PriLOSEC] 40 mg PO DAILY 02/24/20 02/24/20 History Sennosides [Senna] 8.6 mg PO BID 02/24/20 02/24/20 History Allergies Allergy/AdvReac Type Severity Reaction Status Date / Time No Known Allergies Allergy Verified 02/24/20 20:55 Surgical - Exam Vital Signs Temp Pulse Resp BP Pulse Ox 97.7 F 57 L 18 113/55 97 02/24/20 15:37 02/24/20 15:37 02/24/20 15:37 02/24/20 15:37 02/24/20 15:37 - General Obvious left facial swelling - Eyes Left eye is swollen shut, laceration of left eyelid PERRL - ENT normal pinna - Neck no masses - Respiratory normal expansion - Cardiovascular Rhythm: regular - Abdomen Abdomen: soft, non tender - Neurologic normal coordination, normal sensation Results - Labs 02/25/20 03:54 02/25/20 03:54 Abnormal Lab Results - Last 24 Hours (Table) 02/24/20 02/24/20 02/24/20 Range/Units 16:12 16:47 17:16 RBC (4.30-5.90) m/uL Hgb (13.0-17.5) gm/dL Hct (39.0-53.0) % Neutrophils # (1.3-7.7) k/uL Lymphocytes # (1.0-4.8) k/uL Sodium (137-145) mmol/L Potassium (3.5-5.1) mmol/L Chloride (98-107) mmol/L Carbon Dioxide (22-30) mmol/L BUN (9-20) mg/dL Creatinine (0.66-1.25) mg/dL Glucose (74-99) mg/dL POC Glucose (mg/dL) 34 L 72 L 43 L (75-99) mg/dL Calcium (8.4-10.2) mg/dL Creatine Kinase (55-170) U/L Total Protein (6.3-8.2) g/dL Urine Protein (Negative) Amorphous Sediment (None) /hpf Hyaline Casts (0-2) /lpf Urine Mucus (None) /hpf 02/24/20 02/24/20 02/24/20 Range/Units 17:50 17:50 18:31 RBC 3.38 L (4.30-5.90) m/uL Hgb 9.7 L (13.0-17.5) gm/dL Hct 31.0 L (39.0-53.0) % Neutrophils # 8.3 H (1.3-7.7) k/uL Lymphocytes # 0.6 L (1.0-4.8) k/uL Sodium (137-145) mmol/L Potassium (3.5-5.1) mmol/L Chloride 111 H (98-107) mmol/L Carbon Dioxide 20 L (22-30) mmol/L BUN 27 H (9-20) mg/dL Creatinine 1.92 H (0.66-1.25) mg/dL Glucose (74-99) mg/dL POC Glucose (mg/dL) 41 L (75-99) mg/dL Calcium (8.4-10.2) mg/dL Creatine Kinase 352 H (55-170) U/L Total Protein 6.2 L (6.3-8.2) g/dL Urine Protein (Negative) Amorphous Sediment (None) /hpf Hyaline Casts (0-2) /lpf Urine Mucus (None) /hpf 02/24/20 02/24/20 02/24/20 Range/Units 18:53 19:29 19:36 RBC (4.30-5.90) m/uL Hgb (13.0-17.5) gm/dL Hct (39.0-53.0) % Neutrophils # (1.3-7.7) k/uL Lymphocytes # (1.0-4.8) k/uL Sodium (137-145) mmol/L Potassium (3.5-5.1) mmol/L Chloride (98-107) mmol/L Carbon Dioxide (22-30) mmol/L BUN (9-20) mg/dL Creatinine (0.66-1.25) mg/dL Glucose (74-99) mg/dL POC Glucose (mg/dL) 129 H 68 L (75-99) mg/dL Calcium (8.4-10.2) mg/dL Creatine Kinase (55-170) U/L Total Protein (6.3-8.2) g/dL Urine Protein 3+ H (Negative) Amorphous Sediment Few H (None) /hpf Hyaline Casts 121 H (0-2) /lpf Urine Mucus Rare H (None) /hpf 02/24/20 02/24/20 02/25/20 Range/Units 19:59 23:01 01:07 RBC (4.30-5.90) m/uL Hgb (13.0-17.5) gm/dL Hct (39.0-53.0) % Neutrophils # (1.3-7.7) k/uL Lymphocytes # (1.0-4.8) k/uL Sodium (137-145) mmol/L Potassium (3.5-5.1) mmol/L Chloride (98-107) mmol/L Carbon Dioxide (22-30) mmol/L BUN (9-20) mg/dL Creatinine (0.66-1.25) mg/dL Glucose (74-99) mg/dL POC Glucose (mg/dL) 54 L 71 L 111 H (75-99) mg/dL Calcium (8.4-10.2) mg/dL Creatine Kinase (55-170) U/L Total Protein (6.3-8.2) g/dL Urine Protein (Negative) Amorphous Sediment (None) /hpf Hyaline Casts (0-2) /lpf Urine Mucus (None) /hpf 02/25/20 02/25/20 02/25/20 Range/Units 02:18 03:54 03:54 RBC 2.89 L (4.30-5.90) m/uL Hgb 8.3 L (13.0-17.5) gm/dL Hct 26.5 L (39.0-53.0) % Neutrophils # (1.3-7.7) k/uL Lymphocytes # 0.4 L (1.0-4.8) k/uL Sodium 136 L (137-145) mmol/L Potassium 5.5 H (3.5-5.1) mmol/L Chloride 113 H (98-107) mmol/L Carbon Dioxide 18 L (22-30) mmol/L BUN 28 H (9-20) mg/dL Creatinine 1.88 H (0.66-1.25) mg/dL Glucose 157 H (74-99) mg/dL POC Glucose (mg/dL) 135 H (75-99) mg/dL Calcium 7.9 L (8.4-10.2) mg/dL Creatine Kinase (55-170) U/L Total Protein (6.3-8.2) g/dL Urine Protein (Negative) Amorphous Sediment (None) /hpf Hyaline Casts (0-2) /lpf Urine Mucus (None) /hpf 02/25/20 02/25/20 02/25/20 Range/Units 03:56 05:06 06:50 RBC (4.30-5.90) m/uL Hgb (13.0-17.5) gm/dL Hct (39.0-53.0) % Neutrophils # (1.3-7.7) k/uL Lymphocytes # (1.0-4.8) k/uL Sodium (137-145) mmol/L Potassium (3.5-5.1) mmol/L Chloride (98-107) mmol/L Carbon Dioxide (22-30) mmol/L BUN (9-20) mg/dL Creatinine (0.66-1.25) mg/dL Glucose (74-99) mg/dL POC Glucose (mg/dL) 173 H 198 H 196 H (75-99) mg/dL Calcium (8.4-10.2) mg/dL Creatine Kinase (55-170) U/L Total Protein (6.3-8.2) g/dL Urine Protein (Negative) Amorphous Sediment (None) /hpf Hyaline Casts (0-2) /lpf Urine Mucus (None) /hpf 02/25/20 02/25/20 Range/Units 07:53 11:31 RBC (4.30-5.90) m/uL Hgb (13.0-17.5) gm/dL Hct (39.0-53.0) % Neutrophils # (1.3-7.7) k/uL Lymphocytes # (1.0-4.8) k/uL Sodium (137-145) mmol/L Potassium (3.5-5.1) mmol/L Chloride (98-107) mmol/L Carbon Dioxide (22-30) mmol/L BUN (9-20) mg/dL Creatinine (0.66-1.25) mg/dL Glucose (74-99) mg/dL POC Glucose (mg/dL) 194 H 317 H (75-99) mg/dL Calcium (8.4-10.2) mg/dL Creatine Kinase (55-170) U/L Total Protein (6.3-8.2) g/dL Urine Protein (Negative) Amorphous Sediment (None) /hpf Hyaline Casts (0-2) /lpf Urine Mucus (None) /hpf Diabetes panel 02/24/20 02/25/20 Range/Units 17:50 03:54 Sodium 139 136 L (137-145) mmol/L Potassium 4.9 5.5 H (3.5-5.1) mmol/L Chloride 111 H 113 H (98-107) mmol/L Carbon Dioxide 20 L 18 L (22-30) mmol/L BUN 27 H 28 H (9-20) mg/dL Creatinine 1.92 H 1.88 H (0.66-1.25) mg/dL Glucose 75 157 H (74-99) mg/dL Calcium 8.7 7.9 L (8.4-10.2) mg/dL AST 28 (17-59) U/L ALT 12 (4-49) U/L Alkaline Phosphatase 51 (38-126) U/L Total Protein 6.2 L (6.3-8.2) g/dL Albumin 3.5 (3.5-5.0) g/dL Calcium panel 02/24/20 02/25/20 Range/Units 17:50 03:54 Calcium 8.7 7.9 L (8.4-10.2) mg/dL Albumin 3.5 (3.5-5.0) g/dL Pituitary panel 02/24/20 02/25/20 Range/Units 17:50 03:54 Sodium 139 136 L (137-145) mmol/L Potassium 4.9 5.5 H (3.5-5.1) mmol/L Chloride 111 H 113 H (98-107) mmol/L Carbon Dioxide 20 L 18 L (22-30) mmol/L BUN 27 H 28 H (9-20) mg/dL Creatinine 1.92 H 1.88 H (0.66-1.25) mg/dL Glucose 75 157 H (74-99) mg/dL Calcium 8.7 7.9 L (8.4-10.2) mg/dL Adrenal panel 02/24/20 02/25/20 Range/Units 17:50 03:54 Sodium 139 136 L (137-145) mmol/L Potassium 4.9 5.5 H (3.5-5.1) mmol/L Chloride 111 H 113 H (98-107) mmol/L Carbon Dioxide 20 L 18 L (22-30) mmol/L BUN 27 H 28 H (9-20) mg/dL Creatinine 1.92 H 1.88 H (0.66-1.25) mg/dL Glucose 75 157 H (74-99) mg/dL Calcium 8.7 7.9 L (8.4-10.2) mg/dL Total Bilirubin 0.2 (0.2-1.3) mg/dL AST 28 (17-59) U/L ALT 12 (4-49) U/L Alkaline Phosphatase 51 (38-126) U/L Total Protein 6.2 L (6.3-8.2) g/dL Albumin 3.5 (3.5-5.0) g/dL - Imaging Chest x-ray: report reviewed (Tiny bilateral pleural effusions with possible right basilar acute infiltrate or atelectasis) Additional studies: No evidence of fracture dislocation cervical spine, no evidence of intrarenal bleed, acute nasal bridge fracture and left-sided orbital floor fracture without inferior rectus muscle entrapment preseptal hematoma Assessment and Plan Assessment: Hypoglycemia causing sickle episode with subsequent ground level fall in facial trauma. Patient is being seen by ophthalmology. The patient is doing fairly well he'll be transferred medical service. No acute intervention by the trauma service's plan.
[2020-02-25 16:44] LABS: Glucose,Whole Blood 165 mg/dL (75-99)
--- NOTE | 2020-02-25 20:14 | P.CONS ---
History of Present Illness - Reason for Consult Consult date: 02/25/20 Medical management Requesting physician: Dick Mosley - Chief Complaint Fall - History of Present Illness History of presenting complaint: This is a 69-year-old patient of Dr. ELIZONDO. Chronic stable medical conditions include hypertension, hyperlipidemia, GERD. Patient presented to the ER. Patient's found unresponsive at home. EMS was called when they arrived to the house he was found to have increased to the left side of the face around the left eye. Patient's Accu-Chek was 31. He was given an amp of dextrose. He was somewhat confused in the ER. He does take Levemir 100 units twice a day. And oral hypoglycemics. Hypoglycemic protocol was used. Lives alone. And does have a industrial cleaning technician who comes to the house. ER physician did talk to the patient's ex- who works down in [place]. ER physician did check the pressure in the left eye and can't Dr. Dr. Colbert. Who recommended I to be covered and not for any acute intervention. Patient is admitted to the trauma service of Dr. Moslye. There was a fracture of the inferior orbital wall. When I saw the patient this morning patient does not remember really what happened. But able otherwise to give a good history. He doesn't think he took any extra insulin or missed any meals. Because of hypoglycemia and the fracture he was admitted to the ICU for closer monitoring. Review of systems: GEN.: Tired EYES: Injury to the left eye and around the same HEENT: None NECK: None RESPIRATORY: None CARDIOVASCULAR: None GASTROINTESTINAL: None GENITOURINARY: None MUSCULOSKELETAL: None LYMPHATICS: None HEMATOLOGICAL: None PSYCHIATRY: None NEUROLOGICAL: No focal neurological symptoms or signs Past medical history to include: Diabetes mellitus, hypertension, tongue cancer Social history: Denies smoking or alcohol. Somebody comes and checks on him. Physical examination: VITAL SIGNS: 97.7, 57, 18, 113/55, 97% room air-upon presentation GENERAL: BMI 32.3, laying in bed, awake. EYES: Dried blood around the left eye, left eye is closed, some skin breakdownl. HEENT: External appearance of nose and ears normal, oral cavity grossly normal. NECK: JVD not raised; masses not palpable. HEART: First and second heart sounds are normal; no edema. LUNGS: Respiratory rate normal; clear to auscultation. ABDOMEN: Soft, nontender, liver spleen not palpable, no masses palpable. PSYCH: Alert and oriented x3; mood and affect normal. NEUROLOGICAL: Cranial nerves grossly intact; no facial asymmetry, power and sensation grossly intact. LYMPHATICS: No lymph nodes palpable in the axilla and neck INVESTIGATIONS, reviewed in the clinical context: White count 9.7 hemoglobin 9.7 platelets 303 progression 4.9 bun 27 creatinine 1.9 to Accu-Cheks in the ER included 34, 72, 43, 85 Troponin I less than 0.012 EKG tracing personally reviewed by me-nonspecific T-wave changes in V1 and V2 Face CT-acute comminuted minimally displaced nasal bridge fracture, displaced left-sided orbital floor fracture without inferior rectal muscle entrapment, moderate size preseptal hematoma Shoulder x-ray-no fracture Chest x-ray film personally reviewed by me-possible pleural effusion small Lumbar and thoracic spine x-ray-no fracture reported and some arthritic changes Assessment: -Diabetes mellitus type 2 chronically on insulin uncontrolled with persistent hypoglycemia -Patient's found on the floor at home with a low Accu-Chek. This could have precipitated the fall but exact circumstances cannot be elicited. -Nasal bone fracture and inferior wall of the orbit of the left eye fracture-to be managed conservatively per Dr. Colbert at the present time. -Obesity BMI 32.3 -Essential hypertension Plan: Patient looking better this morning. Accu-Cheks have come up. Patient did walk to the bathroom. Home medications resumed. Patient be started on Levemir 70 units subcu twice a day starting this evening and in the meantime will give a dose of regular insulin to cover the evening. And jose raul Mosley requested to change his service to myself-will do so. Care was discussed with the patient. Thank you Dr. Mosley. Past Medical History Past Medical History: Cancer, Diabetes Mellitus, Hyperlipidemia, Hypertension Additional Past Medical History / Comment(s): cancerous lesion under tongue=has been removed History of Any Multi-Drug Resistant Organisms: None Reported Past Surgical History: Tonsillectomy Additional Past Surgical History / Comment(s): cancer removal under tongue. Two back surgeries Past Anesthesia/Blood Transfusion Reactions: No Reported Reaction Past Psychological History: No Psychological Hx Reported Smoking Status: Never smoker Past Alcohol Use History: None Reported Past Drug Use History: None Reported - Past Family History Father Family Medical History: Hypertension, Myocardial Infarction ([place]) Mother Family Medical History: Cancer Additional Family Medical History / Comment(s): Breast CA Medications and Allergies Home Medications Medication Instructions Recorded Confirmed Type Insulin Detemir [Levemir Flextouch] 57 units SQ BID 11/22/16 02/24/20 History sitaGLIPtin [Januvia] 100 mg PO DAILY 01/24/18 02/24/20 History Albuterol Sulfate [Proair Hfa] 2 puff INHALATION RT-Q6H PRN 02/24/20 02/24/20 History HYDROcodone/APAP 7.5-325MG [[place] 1 tab PO Q8H 02/24/20 02/24/20 History 7.5-325] Lisinopril [Prinivil] 5 mg PO Q12H 02/24/20 02/24/20 History Methocarbamol [Robaxin-750] 750 mg PO Q8H 02/24/20 02/24/20 History Metoprolol Succinate [Toprol XL] 25 mg PO BID 02/24/20 02/24/20 History NIFEdipine [Procardia XL] 90 mg PO DAILY 02/24/20 02/24/20 History Omeprazole [PriLOSEC] 40 mg PO DAILY 02/24/20 02/24/20 History Sennosides [Senna] 8.6 mg PO BID 02/24/20 02/24/20 History Allergies Allergy/AdvReac Type Severity Reaction Status Date / Time No Known Allergies Allergy Verified 02/24/20 20:55 Physical Exam Vitals: Vital Signs Temp Pulse Pulse Resp BP BP Pulse Ox 02/25/20 10:00 65 34 H 149/51 95 02/25/20 09:00 63 12 142/56 95 02/25/20 08:00 99.3 F 66 10 L 131/53 96 02/25/20 07:00 63 19 133/47 96 02/25/20 06:00 65 13 131/52 95 02/25/20 05:00 65 13 147/66 94 L 02/25/20 04:00 98.7 F 66 13 126/52 93 L 02/25/20 03:00 59 L 17 129/65 95 02/25/20 02:00 56 L 16 121/50 93 L 02/25/20 01:00 54 L 16 129/57 92 L 05/06/20 00:00 98.7 F 57 L 16 126/56 96 02/24/20 23:00 54 L 8 L 127/55 97 02/24/20 22:00 98.8 F 53 L 17 128/63 93 L 02/24/20 21:35 65 18 128/58 97 02/24/20 21:20 98.8 F 53 L 17 127/55 02/24/20 19:00 55 L 18 127/58 99 02/24/20 18:30 55 L 18 124/58 99 02/24/20 18:03 55 L 18 115/83 98 02/24/20 17:30 56 L 18 108/53 98 02/24/20 17:01 57 L 18 110/53 98 02/24/20 16:00 57 L 18 119/55 98 02/24/20 15:40 57 L 18 113/55 97 02/24/20 15:37 97.7 F 57 L 18 113/55 97 Intake and Output 02/24/20 02/25/20 02/25/20 22:59 06:59 14:59 Intake Total 300 525 100 Output Total 200 200 Balance 300 325 -100 Intake: IV 100 525 0 Dextrose 10% in Water 1, 100 525 0 000 ml @ 100 mls/hr IV . [id number] INGE with Sodium Chloride 2.5MEQ/ml Vial 153.8 meq Rx#:[id number] Oral 200 100 Output: Urine 200 200 Other: # Bowel Movements 1 Weight 90.718 kg 90.9 kg Results CBC & Chem 7: 02/25/20 03:54 02/25/20 03:54 Labs: Abnormal Lab Results - Last 24 Hours (Table) 02/24/20 02/24/20 02/24/20 Range/Units 16:12 16:47 17:16 RBC (4.30-5.90) m/uL Hgb (13.0-17.5) gm/dL Hct (39.0-53.0) % Neutrophils # (1.3-7.7) k/uL Lymphocytes # (1.0-4.8) k/uL Sodium (137-145) mmol/L Potassium (3.5-5.1) mmol/L Chloride (98-107) mmol/L Carbon Dioxide (22-30) mmol/L BUN (9-20) mg/dL Creatinine (0.66-1.25) mg/dL Glucose (74-99) mg/dL POC Glucose (mg/dL) 34 L 72 L 43 L (75-99) mg/dL Calcium (8.4-10.2) mg/dL Creatine Kinase (55-170) U/L Total Protein (6.3-8.2) g/dL Urine Protein (Negative) Amorphous Sediment (None) /hpf Hyaline Casts (0-2) /lpf Urine Mucus (None) /hpf 02/24/20 02/24/20 02/24/20 Range/Units 17:50 17:50 18:31 RBC 3.38 L (4.30-5.90) m/uL Hgb 9.7 L (13.0-17.5) gm/dL Hct 31.0 L (39.0-53.0) % Neutrophils # 8.3 H (1.3-7.7) k/uL Lymphocytes # 0.6 L (1.0-4.8) k/uL Sodium (137-145) mmol/L Potassium (3.5-5.1) mmol/L Chloride 111 H (98-107) mmol/L Carbon Dioxide 20 L (22-30) mmol/L BUN 27 H (9-20) mg/dL Creatinine 1.92 H (0.66-1.25) mg/dL Glucose (74-99) mg/dL POC Glucose (mg/dL) 41 L (75-99) mg/dL Calcium (8.4-10.2) mg/dL Creatine Kinase 352 H (55-170) U/L Total Protein 6.2 L (6.3-8.2) g/dL Urine Protein (Negative) Amorphous Sediment (None) /hpf Hyaline Casts (0-2) /lpf Urine Mucus (None) /hpf 02/24/20 02/24/20 02/24/20 Range/Units 18:53 19:29 19:36 RBC (4.30-5.90) m/uL Hgb (13.0-17.5) gm/dL Hct (39.0-53.0) % Neutrophils # (1.3-7.7) k/uL Lymphocytes # (1.0-4.8) k/uL Sodium (137-145) mmol/L Potassium (3.5-5.1) mmol/L Chloride (98-107) mmol/L Carbon Dioxide (22-30) mmol/L BUN (9-20) mg/dL Creatinine (0.66-1.25) mg/dL Glucose (74-99) mg/dL POC Glucose (mg/dL) 129 H 68 L (75-99) mg/dL Calcium (8.4-10.2) mg/dL Creatine Kinase (55-170) U/L Total Protein (6.3-8.2) g/dL Urine Protein 3+ H (Negative) Amorphous Sediment Few H (None) /hpf Hyaline Casts 121 H (0-2) /lpf Urine Mucus Rare H (None) /hpf 02/24/20 02/24/20 02/25/20 Range/Units 19:59 23:01 01:07 RBC (4.30-5.90) m/uL Hgb (13.0-17.5) gm/dL Hct (39.0-53.0) % Neutrophils # (1.3-7.7) k/uL Lymphocytes # (1.0-4.8) k/uL Sodium (137-145) mmol/L Potassium (3.5-5.1) mmol/L Chloride (98-107) mmol/L Carbon Dioxide (22-30) mmol/L BUN (9-20) mg/dL Creatinine (0.66-1.25) mg/dL Glucose (74-99) mg/dL POC Glucose (mg/dL) 54 L 71 L 111 H (75-99) mg/dL Calcium (8.4-10.2) mg/dL Creatine Kinase (55-170) U/L Total Protein (6.3-8.2) g/dL Urine Protein (Negative) Amorphous Sediment (None) /hpf Hyaline Casts (0-2) /lpf Urine Mucus (None) /hpf 02/25/20 02/25/20 02/25/20 Range/Units 02:18 03:54 03:54 RBC 2.89 L (4.30-5.90) m/uL Hgb 8.3 L (13.0-17.5) gm/dL Hct 26.5 L (39.0-53.0) % Neutrophils # (1.3-7.7) k/uL Lymphocytes # 0.4 L (1.0-4.8) k/uL Sodium 136 L (137-145) mmol/L Potassium 5.5 H (3.5-5.1) mmol/L Chloride 113 H (98-107) mmol/L Carbon Dioxide 18 L (22-30) mmol/L BUN 28 H (9-20) mg/dL Creatinine 1.88 H (0.66-1.25) mg/dL Glucose 157 H (74-99) mg/dL POC Glucose (mg/dL) 135 H (75-99) mg/dL Calcium 7.9 L (8.4-10.2) mg/dL Creatine Kinase (55-170) U/L Total Protein (6.3-8.2) g/dL Urine Protein (Negative) Amorphous Sediment (None) /hpf Hyaline Casts (0-2) /lpf Urine Mucus (None) /hpf 02/25/20 02/25/20 02/25/20 Range/Units 03:56 05:06 06:50 RBC (4.30-5.90) m/uL Hgb (13.0-17.5) gm/dL Hct (39.0-53.0) % Neutrophils # (1.3-7.7) k/uL Lymphocytes # (1.0-4.8) k/uL Sodium (137-145) mmol/L Potassium (3.5-5.1) mmol/L Chloride (98-107) mmol/L Carbon Dioxide (22-30) mmol/L BUN (9-20) mg/dL Creatinine (0.66-1.25) mg/dL Glucose (74-99) mg/dL POC Glucose (mg/dL) 173 H 198 H 196 H (75-99) mg/dL Calcium (8.4-10.2) mg/dL Creatine Kinase (55-170) U/L Total Protein (6.3-8.2) g/dL Urine Protein (Negative) Amorphous Sediment (None) /hpf Hyaline Casts (0-2) /lpf Urine Mucus (None) /hpf 02/25/20 Range/Units 07:53 RBC (4.30-5.90) m/uL Hgb (13.0-17.5) gm/dL Hct (39.0-53.0) % Neutrophils # (1.3-7.7) k/uL Lymphocytes # (1.0-4.8) k/uL Sodium (137-145) mmol/L Potassium (3.5-5.1) mmol/L Chloride (98-107) mmol/L Carbon Dioxide (22-30) mmol/L BUN (9-20) mg/dL Creatinine (0.66-1.25) mg/dL Glucose (74-99) mg/dL POC Glucose (mg/dL) 194 H (75-99) mg/dL Calcium (8.4-10.2) mg/dL Creatine Kinase (55-170) U/L Total Protein (6.3-8.2) g/dL Urine Protein (Negative) Amorphous Sediment (None) /hpf Hyaline Casts (0-2) /lpf Urine Mucus (None) /hpf
[2020-02-25 20:21] LABS: Glucose,Whole Blood 56 mg/dL (75-99)
[2020-02-25] MEDS: INSULIN DETEMIR (LEVEMIR) 100 UNIT/ML SYR SQ SCH (20:35)
[2020-02-25 20:42] LABS: Glucose,Whole Blood 62 mg/dL (75-99)
[2020-02-25] MEDS ORDERED: INSULIN DETEMIR 50 UNIT SQ SCH (21:00)
[2020-02-26] MEDS ORDERED: METHOCARBAMOL 750 MG TAB ONE (03:30)
[2020-02-26] MEDS: METHOCARBAMOL 750 MG TAB PO SCH ×2 (04:32→12:35)
[2020-02-26 06:49] LABS: Glucose,Whole Blood 194 mg/dL (75-99)
[2020-02-26] MEDS: PANTOPRAZOLE 40 MG TABLET PO SCH (07:58)
[2020-02-26] MEDS: LINAGLIPTIN 5 MG TABLET PO SCH (07:58)
[2020-02-26] MEDS: METOPROLOL SUCCINATE (ER) 25 MG TAB.ER.24H PO SCH (07:58)
[2020-02-26] MEDS: SENNOSIDES 8.6 MG TAB PO SCH (07:58)
[2020-02-26] MEDS: INSULIN DETEMIR (LEVEMIR) 100 UNIT/ML SYR SQ SCH (07:58)
[2020-02-26] MEDS: INSULIN ASPART (NovoLOG) 100 UNIT/ML VIAL SQ SCH ×3 (07:58→17:09)
[2020-02-26] MEDS: NIFEdipine XL 90 MG TAB.ER.24 PO SCH (07:59)
[2020-02-26 08:24] VITALS: BP 213/67; PULSE 65; RESP 18; TEMP 98.4
--- NOTE | 2020-02-26 11:19 | P.PN ---
Progress Note - Text Progress Note Date: 02/26/20 The patient is still complaining of generalized body aches. He has some facial pain. His left eye is still swollen shut. On exam is lesser stable. Chest clear Abdomen soft nontender Hypoglycemia resulting ground-level fall. Patient be discharged home per medicine. His care has been transferred to Dr. torres service.
--- NOTE | 2020-02-26 11:40 | P.PN ---
Subjective Progress Note Date: 02/26/20 Principal diagnosis: Syncopal episode, patient sustained left facial trauma On 02/26/2020 patient seen in follow-up on no medical floor, doing well, he is ambulating to the bathroom, denies any acute complaints, denies any shortness of breath, lung sounds are clear, he is on room air with a pulse ox of 93-98%, no acute events overnight, no fever or chills, his left eye slightly less swollen today, however his face is still significantly bruised. His admission chest x- ray showed cardiomegaly with tiny bilateral pleural effusions and likely right basilar atelectasis. Objective - Vital Signs Vital signs: Vital Signs Temp 98.4 F 02/26/20 07:00 Pulse 65 02/26/20 07:00 Resp 18 02/26/20 07:00 BP 213/67 02/26/20 07:00 Pulse Ox 93 L 02/26/20 07:00 Intake & Output 02/25/20 02/26/20 02/26/20 18:59 06:59 18:59 Intake Total 100 100 Output Total 200 Balance -100 100 Intake: IV 0 Dextrose 10% in Water 1, 0 000 ml @ 100 mls/hr IV . [id number] INGE with Sodium Chloride 2.5MEQ/ml Vial 153.8 meq Rx#:[id number] Oral 100 100 Output: Urine 200 Other: # Voids 1 1 # Bowel Movements 1 - Exam GENERAL EXAM: Alert, very pleasant, 69-year-old white male, on room air, with pulse ox of 93-98% with significant facial bruising and swelling of the left side of the face and nose, comfortable in no apparent distress. HEAD: Normocephalic/atraumatic. EYES: Normal reaction of pupils, equal size. Conjunctiva pink, sclera white. NOSE: Clear with pink turbinates. Abrasions and ecchymosis and edema present on Orbital area on the left side of the face, improved on today's exam THROAT: No erythema or exudates. NECK: No masses, no JVD, no thyroid enlargement, no adenopathy. CHEST: No chest wall deformity. Symmetrical expansion. LUNGS: Equal air entry with no crackles, wheeze, rhonchi or dullness. CVS: Regular rate and rhythm, normal S1 and S2, no gallops, no murmurs, no rubs ABDOMEN: Soft, nontender. No hepatosplenomegaly, normal bowel sounds, no guarding or rigidity. EXTREMITIES: No clubbing, no edema, no cyanosis, 2+ pulses and upper and lower extremities. MUSCULOSKELETAL: Muscle strength and tone normal. SPINE: No scoliosis or deformity SKIN: No rashes CENTRAL NERVOUS SYSTEM: Alert and oriented -3. No focal deficits, tone is normal in all 4 extremities. PSYCHIATRIC: Alert and oriented -3. Appropriate affect. Intact judgment and insight. - Labs CBC & Chem 7: 02/25/20 03:54 02/25/20 03:54 Labs: Abnormal Lab Results - Last 24 Hours (Table) 02/25/20 02/25/20 02/25/20 Range/Units 11:31 16:42 20:19 POC Glucose (mg/dL) 317 H 165 H 56 L (75-99) mg/dL 02/25/20 02/26/20 Range/Units 20:41 06:48 POC Glucose (mg/dL) 62 L 194 H (75-99) mg/dL Assessment and Plan Plan: Assessment: #1. Syncopal episode possibly related to hypoglycemia #2. Left facial trauma including left orbital floor fracture, nasal fracture and retrobulbar hematoma #3. History of diabetes mellitus #4. Hyperlipidemia #5. History of tongue cancer, status post surgical resection #6. Recent back surgery #7. Lifelong nonsmoker Plan: Vital signs are stable, no acute issues overnight, no complaints of chest pain, left-sided facial edema seems to have improved since yesterday, no complaints of shortness of breath, patient remains on room air. From pulmonary perspective he stable for discharge home today. I performed a history & physical examination of the patient and discussed their management with my nurse practitioner, Diana Cuenca. I reviewed the nurse practitioner's note and agree with the documented findings and plan of care. Lung sounds are positive for clear breath sounds. The findings and the impre ssion was discussed with the patient. I attest to the documentation by the nurse practitioner. Time with Patient: Less than 30
[2020-02-26 12:28] LABS: Glucose,Whole Blood 126 mg/dL (75-99)
[2020-02-26] MEDS: LISINOPRIL 5 MG TAB PO SCH (12:35)
[2020-02-26 17:03] LABS: Glucose,Whole Blood 91 mg/dL (75-99)
[2020-02-26 18:29] LABS: Glucose,Whole Blood 86 mg/dL (75-99)
--- NOTE | 2020-02-26 20:07 | P.DS ---
Providers Date of admission: 02/24/20 20:13 Expected date of discharge: 02/26/20 Attending physician: Dick Mosley Consults: 02/24/20 20:13 Consult Physician Stat Consulting Provider: Bry Villar Consult Reason/Comments: recurrent hypoglycemia Do you want consulting provider notified?: Already Contacted Consult Physician Urgent Consulting Provider: Billy Lizama Consult Reason/Comments: recurrent hypoglycemia Do you want consulting provider notified?: Already Contacted 02/25/20 08:09 Consult Physician Routine Consulting Provider: Manuel Colbert Consult Reason/Comments: eye trauma Do you want consulting provider notified?: Yes Primary care physician: Corey Dockery [facility] Course: - Chief Complaint Fall - History of Present Illness History of presenting complaint: This is a 69-year-old patient of Dr. DOCKERY. Chronic stable medical conditions include hypertension, hyperlipidemia, GERD. Patient presented to the ER. Patient's found unresponsive at home. EMS was called when they arrived to the house he was found to have increased to the left side of the face around the left eye. Patient's Accu-Chek was 31. He was given an amp of dextrose. He was somewhat confused in the ER. He does take Levemir 100 units twice a day. And oral hypoglycemics. Hypoglycemic protocol was used. Lives alone. And does have a biscuit packer who comes to the house. ER physician did talk to the patient's ex- who works down in [place]. ER physician did check the pressure in the left eye and can't Dr. Dr. Colbert. Who recommended I to be covered and not for any acute intervention. Patient is admitted to the trauma service of Dr. Mosley. There was a fracture of the inferior orbital wall. When I saw the patient this morning patient does not remember really what happened. But able otherwise to give a good history. He doesn't think he took any extra insulin or missed any meals. Because of hypoglycemia and the fracture he was admitted to the ICU for closer monitoring. Patient seen by Dr. Colbert from ophthalmology. No intervention at present time. Follow up as an outpatient. Today-patient has dropped which Accu-Cheks morning. It was clarified with him that his Levemir he'll take his 50 units subcu twice a day. Patient being times a very erratic and amount is also erratic. Hence no scheduled short-acting insulin be given. Spoke to the nurse. Discussion and discharge planning more than 35 minutes Consultation: Dr. Colbert from ophthalmology Dr. Mosley from general surgery Physical examination: VITAL SIGNS: 98.1, 66, 16, 142/87, 95% on room air GENERAL: BMI 32.3, laying in bed, awake. EYES: Dried blood around the left eye, left eye is closed, some skin breakdownl. HEENT: External appearance of nose and ears normal, oral cavity grossly normal. NECK: JVD not raised; masses not palpable. HEART: First and second heart sounds are normal; no edema. LUNGS: Respiratory rate normal; clear to auscultation. ABDOMEN: Soft, nontender, liver spleen not palpable, no masses palpable. PSYCH: Alert and oriented x3; mood and affect normal. INVESTIGATIONS, reviewed in the clinical context: White count 9.7 hemoglobin 9.7 platelets 303 progression 4.9 bun 27 creatinine 1.9 to Accu-Cheks in the ER included 34, 72, 43, 85 Troponin I less than 0.012 EKG tracing personally reviewed by me-nonspecific T-wave changes in V1 and V2 Face CT-acute comminuted minimally displaced nasal bridge fracture, displaced left-sided orbital floor fracture without inferior rectal muscle entrapment, moderate size preseptal hematoma Shoulder x-ray-no fracture Chest x-ray film personally reviewed by me-possible pleural effusion small Lumbar and thoracic spine x-ray-no fracture reported and some arthritic changes Assessment: -Diabetes mellitus type 2 chronically on insulin uncontrolled with persistent hypoglycemia -Nasal bone fracture and inferior wall of the orbit of the left eye fracture-to be managed conservatively per Dr. Colbert at the present time. -Obesity BMI 32.3 -Essential hypertension -Hyperlipidemia Disposition: Home Patient Condition at Discharge: Stable Plan - Discharge Summary Discharge Rx Participant: Yes New Discharge Prescriptions: Continue sitaGLIPtin [Januvia] 100 mg PO DAILY NIFEdipine [Procardia XL] 90 mg PO DAILY Methocarbamol [Robaxin-750] 750 mg PO Q8H Omeprazole [PriLOSEC] 40 mg PO DAILY Metoprolol Succinate [Toprol XL] 25 mg PO BID HYDROcodone/APAP 7.5-325MG [[place] 7.5-325] 1 tab PO Q8H Albuterol Sulfate [Proair Hfa] 2 puff INHALATION RT-Q6H PRN PRN Reason: Shortness Of Breath Lisinopril [Prinivil] 5 mg PO Q12H Sennosides [Senna] 8.6 mg PO BID Changed Insulin Detemir [Levemir Flextouch] 50 units SQ BID #0 Discharge Medication List sitaGLIPtin [Januvia] 100 mg PO DAILY 01/24/18 [History] Albuterol Sulfate [Proair Hfa] 2 puff INHALATION RT-Q6H PRN 02/24/20 [History] HYDROcodone/APAP 7.5-325MG [[place] 7.5-325] 1 tab PO Q8H 02/24/20 [History] Lisinopril [Prinivil] 5 mg PO Q12H 02/24/20 [History] Methocarbamol [Robaxin-750] 750 mg PO Q8H 02/24/20 [History] Metoprolol Succinate [Toprol XL] 25 mg PO BID 02/24/20 [History] NIFEdipine [Procardia XL] 90 mg PO DAILY 02/24/20 [History] Omeprazole [PriLOSEC] 40 mg PO DAILY 02/24/20 [History] Sennosides [Senna] 8.6 mg PO BID 02/24/20 [History] Insulin Detemir [Levemir Flextouch] 50 units SQ BID #0 02/26/20 [Rx] Follow up Appointment(s)/Referral(s): Corey Dockery MD [Primary Care Provider] - 1-2 days () Manuel Colbert MD [STAFF PHYSICIAN] - 03/03/20 9:00 am (Please bring a mask with you to your appointment. Thank you.) [facility], [NON-STAFF] - 1 Week Patient Instructions/Handouts: Facial Fracture (DC), Hypoglycemia in a Person with Diabetes (DC), What to Do if Your Blood Sugar is Low (DC) Activity/Diet/Wound Care/Special Instructions: wound care per dr mosley dc after supper Discharge Disposition: HOME SELF-CARE
[2020-02-26] MEDS ORDERED: INSULIN DETEMIR (LEVEMIR) 100 UNIT/ML SYR SQ SCH (21:00)
== END 2020-02-26 19:14 | disposition home or self-care (01) | DRG 638 ==
LOC: EC 15:28 → 2SICU 20:13 → 4SSUR 02-25 17:04
PROVIDERS: ADMIT Surgery; ATTEND Surgery
PROC: 3E0234Z Introduction of Serum, Toxoid and Vaccine into Muscle, Percutaneous Approach (ICD-10-PCS; principal; 2020-02-25)
DX: E11.649 Type 2 diabetes mellitus with hypoglycemia without coma (principal); S02.32XA Fracture of orbital floor, left side, initial encounter for closed fracture; I11.9 Hypertensive heart disease without heart failure; Z79.4 Long term (current) use of insulin; E78.5 Hyperlipidemia, unspecified; Z23 Encounter for immunization; S05.12XA Contusion of eyeball and orbital tissues, left eye, initial encounter; S01.112A Laceration without foreign body of left eyelid and periocular area, initial encounter; Z11.59 Encounter for screening for other viral diseases; S02.2XXA Fracture of nasal bones, initial encounter for closed fracture; I45.10 Unspecified right bundle-branch block; K21.9 Gastro-esophageal reflux disease without esophagitis; M25.511 Pain in right shoulder; E66.9 Obesity, unspecified; Z68.32 Body mass index [BMI] 32.0-32.9, adult; Z79.891 Long term (current) use of opiate analgesic; Z79.899 Other long term (current) drug therapy; Z85.810 Personal history of malignant neoplasm of tongue; Z98.890 Other specified postprocedural states; W18.30XA Fall on same level, unspecified, initial encounter; Y92.009 Unspecified place in unspecified non-institutional (private) residence as the place of occurrence of the external cause; Z82.49 Family history of ischemic heart disease and other diseases of the circulatory system; Z80.3 Family history of malignant neoplasm of breast
CPT/HCPCS: 36415; 70450; 70486; 71046; 72070; 72100; 72125; 80048; 80053; 80320; 81001; 82550; 83880; 84484; 85025; 85610; 85730; 87635; 90715; 93005; 96361; 96374; 96375; 96376; 99291

== ENCOUNTER → 2020-05-11 | Outpatient (CLI) | payer MEDICARE ==
[2020-05-11 19:16] LABS: African American GFR (CKD) 30.1 (60.0-200.0)
== END | disposition home or self-care (01) ==
LOC: LABWHC1 13:34
PROVIDERS: ATTEND Ophthalmology
DX: Z01.818 Encounter for other preprocedural examination (principal)
CPT/HCPCS: 36415; 82565; 84520